=== PATIENT | female | born 1970 | race Caucasian/White ===

== ENCOUNTER 2018-02-04 10:46 | Outpatient (REF) | payer BC, SELFPAY ==
[2018-02-04 11:10] LABS: Absolute Basophil Count 0.02 k/cumm (0.0-0.2); Absolute Lymphocyte Count 1.71 k/cumm (1.2-3.4); Absolute Monocyte Count 0.25 k/cumm (0.11-0.7); Absolute Neutrophil Count 2.96 k/cumm (1.2-6.7); Basophils % 0.4; HCT 41.9 % (36.0-46.0); HGB 13.5 g/dL (12.0-15.5); Lymphocytes % 33.9; Mean Corp. HGB Concentration 32.2 g/dL (32.0-36.0); Mean Corpuscular Hemoglobin 30.6 pg (27.0-33.0); Mean Platelet Volume 11.4 fL (8.0-11.0); Neutrophils % 58.7; Platelet Count 309 x1000/uL (130-400); RBC 4.41 m/cumm (4.00-5.20); RBC Distribution Width 12.5 % (11.7-14.6); White Blood Cell Count 5.04 k/cumm (4.4-10.8)
[2018-02-04 11:24] LABS: ALT 28 U/L (12-78); AST 14 U/L (15-37); Alkaline Phosphatase 55 U/L (46-116); Anion Gap 10.6 mmol/L (3-11); BUN 10 mg/dL (7-18); Bilirubin, Total 0.5 mg/dL (0.2-1.0); CO2 27.4 mmol/L (21.0-32.0); CREATININE 0.92 mg/dL (0.55-1.02); Calcium 9.5 mg/dL (8.5-10.1); Chloride 104 mmol/L (98-107); Glucose 145 mg/dL (70-100); Potassium 3.6 mmol/L (3.5-5.1); Sodium 142 mmol/L (136-145); Total Protein 7.8 g/dL (6.4-8.2)
== END 2018-02-04 11:06 ==
LOC: LBN 10:46
PROVIDERS: PCP Nurse Practitioner Family; Visit Provider Nurse Practitioner
DX: C71.9 Malignant neoplasm of brain, unspecified (principal)
CPT/HCPCS: 80053; 85025

== ENCOUNTER 2018-02-25 14:57 | Outpatient (CLI) | payer BC, SELFPAY ==
[2018-02-25 15:36] LABS: Abs Immature Grans 0.01 k/cumm (0.0-0.09); Absolute Basophil Count 0.01 k/cumm (0.0-0.2); Absolute Eosinophil Count 0.27 k/cumm (0.0-0.7); Absolute Lymphocyte Count 1.37 k/cumm (1.2-3.4); Absolute Monocyte Count 0.44 k/cumm (0.11-0.7); Absolute Neutrophil Count 4.21 k/cumm (1.2-6.7); Basophils % 0.2; Eosinophils % 4.3; HGB 12.1 g/dL (12.0-15.5); Immature Grans % 0.2; Lymphocytes % 21.7; Mean Corp. HGB Concentration 31.8 g/dL (32.0-36.0); Mean Corpuscular Hemoglobin 30.5 pg (27.0-33.0); Mean Corpuscular Volume 95.7 fL (80-95); Mean Platelet Volume 9.5 fL (8.0-11.0); Neutrophils % 66.6; Platelet Count 307 x1000/uL (130-400); RBC 3.97 m/cumm (4.00-5.20); RBC Distribution Width 13.4 % (11.7-14.6); White Blood Cell Count 6.31 k/cumm (4.4-10.8)
[2018-02-25 15:59] LABS: ALT 96 U/L (12-78); AST 48 U/L (15-37); Albumin 3.8 g/dL (3.4-5.0); Alkaline Phosphatase 68 U/L (46-116); Anion Gap 9.5 mmol/L (3-11); BUN 7 mg/dL (7-18); Bilirubin, Total 0.3 mg/dL (0.2-1.0); CO2 27.5 mmol/L (21.0-32.0); CREATININE 0.94 mg/dL (0.55-1.02); Calcium 9.4 mg/dL (8.5-10.1); Chloride 103 mmol/L (98-107); Glucose 91 mg/dL (70-100); Potassium 3.7 mmol/L (3.5-5.1); Sodium 140 mmol/L (136-145); Total Protein 7.4 g/dL (6.4-8.2)
== END 2018-02-25 15:17 ==
PROVIDERS: PCP Nurse Practitioner Family; Visit Provider Nurse Practitioner Family
DX: C71.9 Malignant neoplasm of brain, unspecified (principal)
CPT/HCPCS: 36415; 80053; 85025

== ENCOUNTER 2018-03-03 14:02 | Outpatient (CLI) | payer BC, SELFPAY ==
[2018-03-03 14:30] LABS: ALT 53 U/L (12-78); AST 24 U/L (15-37); Albumin 3.7 g/dL (3.4-5.0); Alkaline Phosphatase 62 U/L (46-116); BUN 10 mg/dL (7-18); Bilirubin, Total 0.4 mg/dL (0.2-1.0); Calcium 9.4 mg/dL (8.5-10.1); Chloride 103 mmol/L (98-107); Estimated GFR 59.18 (mL/min/1.73m2); Glucose 94 mg/dL (70-100); Potassium 3.8 mmol/L (3.5-5.1); Sodium 139 mmol/L (136-145); Total Protein 7.3 g/dL (6.4-8.2)
== END 2018-03-03 14:22 ==
PROVIDERS: PCP Nurse Practitioner Family; Visit Provider Nurse Practitioner Family
DX: C71.9 Malignant neoplasm of brain, unspecified (principal)
CPT/HCPCS: 36415; 80053

== ENCOUNTER 2018-03-09 15:40 | Outpatient (CLI) | payer BC, SELFPAY ==
[2018-03-09 16:25] LABS: Abs Immature Grans 0.02 k/cumm (0.0-0.09); Absolute Basophil Count 0.02 k/cumm (0.0-0.2); Absolute Eosinophil Count 0.36 k/cumm (0.0-0.7); Absolute Monocyte Count 0.54 k/cumm (0.11-0.7); Absolute Neutrophil Count 3.48 k/cumm (1.2-6.7); Basophils % 0.4; Eosinophils % 6.5; HCT 38.7 % (36.0-46.0); HGB 12.4 g/dL (12.0-15.5); Immature Grans % 0.4; Lymphocytes % 19.9; Mean Corpuscular Hemoglobin 30.7 pg (27.0-33.0); Mean Corpuscular Volume 95.8 fL (80-95); Mean Platelet Volume 9.7 fL (8.0-11.0); Monocytes % 9.8; Platelet Count 165 x1000/uL (130-400); RBC 4.04 m/cumm (4.00-5.20); RBC Distribution Width 13.7 % (11.7-14.6); White Blood Cell Count 5.52 k/cumm (4.4-10.8)
[2018-03-09 16:59] LABS: ALT 39 U/L (12-78); AST 25 U/L (15-37); Albumin 3.9 g/dL (3.4-5.0); Alkaline Phosphatase 61 U/L (46-116); Anion Gap 8.8 mmol/L (3-11); BUN 11 mg/dL (7-18); Bilirubin, Total 0.4 mg/dL (0.2-1.0); CO2 28.2 mmol/L (21.0-32.0); CREATININE 1.05 mg/dL (0.55-1.02); Calcium 9.6 mg/dL (8.5-10.1); Chloride 103 mmol/L (98-107); Estimated GFR 55.94 (mL/min/1.73m2); Glucose 100 mg/dL (70-100); Potassium 4.1 mmol/L (3.5-5.1); Sodium 140 mmol/L (136-145)
== END 2018-03-09 16:00 ==
PROVIDERS: PCP Nurse Practitioner Family; Visit Provider Nurse Practitioner Family
DX: C71.9 Malignant neoplasm of brain, unspecified (principal)
CPT/HCPCS: 36415; 80053; 85025

== ENCOUNTER 2018-03-21 14:38 | Outpatient (CLI) | payer BC, SELFPAY ==
[2018-03-21 15:07] LABS: Absolute Basophil Count 0.02 k/cumm (0.0-0.2); Absolute Eosinophil Count 0.29 k/cumm (0.0-0.7); Absolute Monocyte Count 0.46 k/cumm (0.11-0.7); Absolute Neutrophil Count 3.32 k/cumm (1.2-6.7); Basophils % 0.4; Eosinophils % 5.8; HCT 36.2 % (36.0-46.0); HGB 11.7 g/dL (12.0-15.5); Mean Corp. HGB Concentration 32.3 g/dL (32.0-36.0); Mean Corpuscular Hemoglobin 31.5 pg (27.0-33.0); Mean Corpuscular Volume 97.6 fL (80-95); Mean Platelet Volume 9.3 fL (8.0-11.0); Monocytes % 9.2; Neutrophils % 66.6; Platelet Count 153 x1000/uL (130-400); RBC 3.71 m/cumm (4.00-5.20); RBC Distribution Width 14.6 % (11.7-14.6); White Blood Cell Count 4.99 k/cumm (4.4-10.8)
[2018-03-21 16:12] LABS: ALT 96 U/L (12-78); AST 55 U/L (15-37); Albumin 3.6 g/dL (3.4-5.0); Alkaline Phosphatase 60 U/L (46-116); Anion Gap 7.3 mmol/L (3-11); BUN 8 mg/dL (7-18); Bilirubin, Total 0.2 mg/dL (0.2-1.0); CO2 30.7 mmol/L (21.0-32.0); CREATININE 0.99 mg/dL (0.55-1.02); Calcium 9.2 mg/dL (8.5-10.1); Chloride 105 mmol/L (98-107); Estimated GFR 59.87 (mL/min/1.73m2); Glucose 91 mg/dL (70-100); Potassium 3.9 mmol/L (3.5-5.1); Sodium 143 mmol/L (136-145); Total Protein 6.8 g/dL (6.4-8.2)
== END 2018-03-21 14:58 ==
PROVIDERS: PCP Nurse Practitioner Family; Visit Provider Nurse Practitioner Family
DX: C71.9 Malignant neoplasm of brain, unspecified (principal)
CPT/HCPCS: 36415; 80053; 85025

== ENCOUNTER 2018-04-02 10:55 | Outpatient (CLI) | payer BC, SELFPAY ==
[2018-04-02 11:30] LABS: Abs Immature Grans 0.01 k/cumm (0.0-0.09); Absolute Basophil Count 0.03 k/cumm (0.0-0.2); Absolute Eosinophil Count 0.55 k/cumm (0.0-0.7); Absolute Lymphocyte Count 0.76 k/cumm (1.2-3.4); Absolute Monocyte Count 0.33 k/cumm (0.11-0.7); Absolute Neutrophil Count 2.17 k/cumm (1.2-6.7); Basophils % 0.8; Eosinophils % 14.3; HCT 33.7 % (36.0-46.0); HGB 10.6 g/dL (12.0-15.5); Immature Grans % 0.3; Lymphocytes % 19.7; Mean Corp. HGB Concentration 31.5 g/dL (32.0-36.0); Mean Corpuscular Hemoglobin 31.5 pg (27.0-33.0); Mean Corpuscular Volume 100.3 fL (80-95); Mean Platelet Volume 8.8 fL (8.0-11.0); Monocytes % 8.6; Neutrophils % 56.3; Platelet Count 272 x1000/uL (130-400); RBC 3.36 m/cumm (4.00-5.20); RBC Distribution Width 15.6 % (11.7-14.6); White Blood Cell Count 3.85 k/cumm (4.4-10.8)
== END 2018-04-02 11:15 ==
PROVIDERS: PCP Nurse Practitioner Family; Visit Provider Psychiatry & Neurology Neurology
DX: C71.9 Malignant neoplasm of brain, unspecified (principal)
CPT/HCPCS: 36415; 85025

== ENCOUNTER 2018-04-25 03:01 | Outpatient (CLI) | payer BC, SELFPAY ==
[2018-04-25 10:01] LABS: Abs Immature Grans 0.05 k/cumm (0.0-0.09); Absolute Eosinophil Count 0.02 k/cumm (0.0-0.7); Absolute Lymphocyte Count 0.63 k/cumm (1.2-3.4); Absolute Monocyte Count 0.53 k/cumm (0.11-0.7); Absolute Neutrophil Count 7.15 k/cumm (1.2-6.7); Eosinophils % 0.2; HCT 35.6 % (36.0-46.0); HGB 11.7 g/dL (12.0-15.5); Immature Grans % 0.6; Lymphocytes % 7.5; Mean Corp. HGB Concentration 32.9 g/dL (32.0-36.0); Mean Corpuscular Hemoglobin 31.8 pg (27.0-33.0); Mean Corpuscular Volume 96.7 fL (80-95); Mean Platelet Volume 10.1 fL (8.0-11.0); Monocytes % 6.3; Neutrophils % 85.4; Platelet Count 297 x1000/uL (130-400); RBC 3.68 m/cumm (4.00-5.20); RBC Distribution Width 13.7 % (11.7-14.6); White Blood Cell Count 8.38 k/cumm (4.4-10.8)
[2018-04-25 10:12] LABS: ALT 22 U/L (12-78); AST 14 U/L (15-37); Alkaline Phosphatase 54 U/L (46-116); Anion Gap 12.2 mmol/L (3-11); BUN 24 mg/dL (7-18); Bilirubin, Total 0.3 mg/dL (0.2-1.0); CO2 25.8 mmol/L (21.0-32.0); CREATININE 1.66 mg/dL (0.55-1.02); Calcium 9.6 mg/dL (8.5-10.1); Chloride 102 mmol/L (98-107); Estimated GFR 32.97 (mL/min/1.73m2); Glucose 120 mg/dL (70-100); Potassium 3.2 mmol/L (3.5-5.1); Sodium 140 mmol/L (136-145); Total Protein 7.7 g/dL (6.4-8.2)
== END 2018-04-25 03:21 ==
PROVIDERS: PCP Family Medicine; Visit Provider Psychiatry & Neurology Neurology
DX: C71.9 Malignant neoplasm of brain, unspecified (principal)
CPT/HCPCS: 36415; 80053; 85025

== ENCOUNTER 2018-05-03 13:15 | Outpatient (CLI) | payer BC, SELFPAY ==
[2018-05-03 13:35] LABS: Abs Immature Grans 0.01 k/cumm (0.0-0.09); Absolute Basophil Count 0.01 k/cumm (0.0-0.2); Absolute Eosinophil Count 0.03 k/cumm (0.0-0.7); Absolute Monocyte Count 0.27 k/cumm (0.11-0.7); Absolute Neutrophil Count 6.24 k/cumm (1.2-6.7); Basophils % 0.1; Eosinophils % 0.4; HCT 34.4 % (36.0-46.0); HGB 11.4 g/dL (12.0-15.5); Immature Grans % 0.1; Lymphocytes % 5.7; Mean Corp. HGB Concentration 33.1 g/dL (32.0-36.0); Mean Corpuscular Hemoglobin 32.4 pg (27.0-33.0); Mean Corpuscular Volume 97.7 fL (80-95); Mean Platelet Volume 9.5 fL (8.0-11.0); Monocytes % 3.9; Neutrophils % 89.8; Platelet Count 199 x1000/uL (130-400); RBC 3.52 m/cumm (4.00-5.20); RBC Distribution Width 13.8 % (11.7-14.6); White Blood Cell Count 6.96 k/cumm (4.4-10.8)
== END 2018-05-03 13:35 ==
PROVIDERS: PCP Family Medicine; Visit Provider Psychiatry & Neurology Neurology
DX: C71.9 Malignant neoplasm of brain, unspecified (principal)
CPT/HCPCS: 36415; 85025

== ENCOUNTER 2018-05-10 15:48 | Outpatient (CLI) | payer BC, SELFPAY ==
[2018-05-10 16:44] LABS: Abs Immature Grans 0.01 k/cumm (0.0-0.09); Absolute Eosinophil Count 0.04 k/cumm (0.0-0.7); Absolute Monocyte Count 0.35 k/cumm (0.11-0.7); Absolute Neutrophil Count 4.43 k/cumm (1.2-6.7); Eosinophils % 0.8; HGB 10.6 g/dL (12.0-15.5); Immature Grans % 0.2; Lymphocytes % 9.4; Mean Corp. HGB Concentration 32.1 g/dL (32.0-36.0); Mean Corpuscular Hemoglobin 32.5 pg (27.0-33.0); Mean Corpuscular Volume 101.2 fL (80-95); Mean Platelet Volume 8.9 fL (8.0-11.0); Monocytes % 6.6; Platelet Count 119 x1000/uL (130-400); RBC 3.26 m/cumm (4.00-5.20); RBC Distribution Width 14.9 % (11.7-14.6); White Blood Cell Count 5.33 k/cumm (4.4-10.8)
[2018-05-10 17:05] LABS: ALT 34 U/L (12-78); AST 13 U/L (15-37); Albumin 3.8 g/dL (3.4-5.0); Alkaline Phosphatase 48 U/L (46-116); Anion Gap 11.5 mmol/L (3-11); BUN 16 mg/dL (7-18); Bilirubin, Total 0.3 mg/dL (0.2-1.0); CO2 28.5 mmol/L (21.0-32.0); Chloride 103 mmol/L (98-107); Estimated GFR 47.95 (mL/min/1.73m2); Glucose 136 mg/dL (70-100); Potassium 3.4 mmol/L (3.5-5.1); Sodium 143 mmol/L (136-145); Total Protein 6.4 g/dL (6.4-8.2)
[2018-05-10 17:10] LABS: Calcium 8.9 mg/dL (8.5-10.1)
== END 2018-05-10 16:08 ==
PROVIDERS: PCP Family Medicine; Visit Provider Psychiatry & Neurology Neurology
DX: C71.9 Malignant neoplasm of brain, unspecified (principal)
CPT/HCPCS: 36415; 80053; 85025

== ENCOUNTER 2018-05-17 10:17 | Outpatient (CLI) | payer BC, SELFPAY ==
[2018-05-17 10:51] LABS: Absolute Eosinophil Count 0.04 k/cumm (0.0-0.7); Absolute Lymphocyte Count 0.68 k/cumm (1.2-3.4); Absolute Neutrophil Count 3.74 k/cumm (1.2-6.7); Eosinophils % 0.9; HCT 32.5 % (36.0-46.0); HGB 10.5 g/dL (12.0-15.5); Lymphocytes % 14.6; Mean Corp. HGB Concentration 32.3 g/dL (32.0-36.0); Mean Corpuscular Hemoglobin 33.1 pg (27.0-33.0); Mean Corpuscular Volume 102.5 fL (80-95); Mean Platelet Volume 9.5 fL (8.0-11.0); Monocytes % 4.3; Neutrophils % 80.2; RBC 3.17 m/cumm (4.00-5.20); RBC Distribution Width 14.9 % (11.7-14.6); White Blood Cell Count 4.66 k/cumm (4.4-10.8)
[2018-05-17 11:18] LABS: Platelet Count 20 x1000/uL (130-400)
[2018-05-17 11:19] LABS: Diff Comment RBC Morph Reviewed; Macrocytosis 1+; Polychromasia Present
== END 2018-05-17 10:37 ==
PROVIDERS: PCP Family Medicine; Visit Provider Psychiatry & Neurology Neurology
DX: C71.9 Malignant neoplasm of brain, unspecified (principal)
CPT/HCPCS: 36415; 85025

== ENCOUNTER 2018-05-23 11:50 | Outpatient (CLI) | payer BC, SELFPAY ==
[2018-05-23 13:11] LABS: Absolute Lymphocyte Count 0.57 k/cumm (1.2-3.4); Absolute Monocyte Count 0.15 k/cumm (0.11-0.7); HCT 32.4 % (36.0-46.0); HGB 10.7 g/dL (12.0-15.5); Lymphocytes % 16.7; Mean Corpuscular Hemoglobin 33.6 pg (27.0-33.0); Mean Corpuscular Volume 101.9 fL (80-95); Mean Platelet Volume 8.9 fL (8.0-11.0); Monocytes % 4.4; Neutrophils % 78.9; RBC 3.18 m/cumm (4.00-5.20); RBC Distribution Width 14.9 % (11.7-14.6); White Blood Cell Count 3.42 k/cumm (4.4-10.8)
[2018-05-23 13:45] LABS: Platelet Count 45 x1000/uL (130-400)
[2018-05-23 13:46] LABS: Diff Comment PLT Morph Reviewed
[2018-05-23 13:47] LABS: RBC Morphology Normal
== END 2018-05-23 12:10 ==
PROVIDERS: PCP Family Medicine; Visit Provider Psychiatry & Neurology Neurology
DX: C71.9 Malignant neoplasm of brain, unspecified (principal)
CPT/HCPCS: 36415; 85025

== ENCOUNTER 2018-05-30 08:53 | Outpatient (CLI) | payer BC, SELFPAY ==
[2018-05-30 13:05] LABS: Abs Immature Grans 0.02 k/cumm (0.0-0.09); Absolute Monocyte Count 0.17 k/cumm (0.11-0.7); Absolute Neutrophil Count 2.41 k/cumm (1.2-6.7); HCT 33.3 % (36.0-46.0); HGB 11.1 g/dL (12.0-15.5); Immature Grans % 0.6; Lymphocytes % 18.8; Mean Corp. HGB Concentration 33.3 g/dL (32.0-36.0); Mean Corpuscular Hemoglobin 34.3 pg (27.0-33.0); Mean Corpuscular Volume 102.8 fL (80-95); Mean Platelet Volume 9.1 fL (8.0-11.0); Monocytes % 5.3; Neutrophils % 75.3; RBC 3.24 m/cumm (4.00-5.20)
[2018-05-30 13:46] LABS: Diff Comment RBC Morph Reviewed; Platelet Count 15 x1000/uL (130-400)
[2018-05-30 13:47] LABS: Anisocytosis 2+; Macrocytosis 1+; Polychromasia Present
== END 2018-05-30 09:13 ==
PROVIDERS: PCP Family Medicine; Visit Provider Psychiatry & Neurology Neurology
DX: C71.9 Malignant neoplasm of brain, unspecified (principal)
CPT/HCPCS: 36415; 85025

== ENCOUNTER 2018-06-01 00:48 | Outpatient (CLI) | payer BC, SELFPAY ==
[2018-06-01 08:52] LABS: Abs Immature Grans 0.02 k/cumm (0.0-0.09); Absolute Lymphocyte Count 0.77 k/cumm (1.2-3.4); Absolute Monocyte Count 0.24 k/cumm (0.11-0.7); HCT 33.8 % (36.0-46.0); HGB 11.1 g/dL (12.0-15.5); Immature Grans % 0.8; Lymphocytes % 29.3; Mean Corp. HGB Concentration 32.8 g/dL (32.0-36.0); Mean Corpuscular Volume 103.7 fL (80-95); Monocytes % 9.1; Neutrophils % 60.8; RBC 3.26 m/cumm (4.00-5.20); RBC Distribution Width 16.5 % (11.7-14.6); White Blood Cell Count 2.63 k/cumm (4.4-10.8)
[2018-06-01 09:29] LABS: Platelet Count 21 x1000/uL (130-400)
[2018-06-01 09:58] LABS: Diff Comment PLT Morph Reviewed
[2018-06-01 10:14] LABS: Anisocytosis 1+; Macrocytosis 1+; Polychromasia Present
== END 2018-06-01 01:08 ==
PROVIDERS: PCP Family Medicine; Visit Provider Psychiatry & Neurology Neurology
DX: C71.9 Malignant neoplasm of brain, unspecified (principal)
CPT/HCPCS: 36415; 85025

== ENCOUNTER 2018-06-03 01:19 | Outpatient (CLI) | payer BC, SELFPAY ==
[2018-06-03 07:50] LABS: Abs Immature Grans 0.06 k/cumm (0.0-0.09); HCT 34.1 % (36.0-46.0); HGB 11.1 g/dL (12.0-15.5); Mean Corp. HGB Concentration 32.6 g/dL (32.0-36.0); Mean Corpuscular Hemoglobin 33.9 pg (27.0-33.0); Mean Corpuscular Volume 104.3 fL (80-95); RBC 3.27 m/cumm (4.00-5.20); RBC Distribution Width 16.9 % (11.7-14.6); White Blood Cell Count 2.82 k/cumm (4.4-10.8)
[2018-06-03 08:46] LABS: Absolute Lymphocyte Count 0.93 k/cumm (1.2-3.4); Absolute Neutrophil Count 1.61 k/cumm (1.2-6.7); Platelet Count 28 x1000/uL (130-400)
[2018-06-03 08:47] LABS: Anisocytosis 1+; Diff Comment Manual Differential; Polychromasia Present
== END 2018-06-03 01:39 ==
PROVIDERS: PCP Family Medicine; Visit Provider Psychiatry & Neurology Neurology
DX: C71.9 Malignant neoplasm of brain, unspecified (principal)
CPT/HCPCS: 36415; 85025

== ENCOUNTER 2018-06-08 01:54 | Outpatient (CLI) | payer BC, SELFPAY ==
[2018-06-08 09:50] LABS: HCT 34.9 % (36.0-46.0); HGB 11.5 g/dL (12.0-15.5); Mean Corpuscular Hemoglobin 34.4 pg (27.0-33.0); Mean Corpuscular Volume 104.5 fL (80-95); Mean Platelet Volume 9.8 fL (8.0-11.0); RBC 3.34 m/cumm (4.00-5.20); RBC Distribution Width 17.6 % (11.7-14.6); White Blood Cell Count 3.75 k/cumm (4.4-10.8)
[2018-06-08 10:02] LABS: Platelet Count 37 x1000/uL (130-400)
== END 2018-06-08 02:14 ==
PROVIDERS: PCP Family Medicine; Visit Provider Psychiatry & Neurology Neurology
DX: C71.9 Malignant neoplasm of brain, unspecified (principal)
CPT/HCPCS: 36415; 85027

== ENCOUNTER 2018-06-24 03:42 | Outpatient (CLI) | payer BC, SELFPAY ==
[2018-06-24 12:35] LABS: Abs Immature Grans 0.06 k/cumm (0.0-0.09); Absolute Basophil Count 0.01 k/cumm (0.0-0.2); Absolute Lymphocyte Count 0.54 k/cumm (1.2-3.4); Absolute Monocyte Count 0.28 k/cumm (0.11-0.7); Absolute Neutrophil Count 4.61 k/cumm (1.2-6.7); Basophils % 0.2; HCT 33.3 % (36.0-46.0); HGB 10.8 g/dL (12.0-15.5); Immature Grans % 1.1; Lymphocytes % 9.8; Mean Corp. HGB Concentration 32.4 g/dL (32.0-36.0); Mean Corpuscular Hemoglobin 35.1 pg (27.0-33.0); Mean Corpuscular Volume 108.1 fL (80-95); Mean Platelet Volume 9.2 fL (8.0-11.0); Monocytes % 5.1; Neutrophils % 83.8; RBC 3.08 m/cumm (4.00-5.20); RBC Distribution Width 18.6 % (11.7-14.6)
[2018-06-24 13:11] LABS: Platelet Count 32 x1000/uL (130-400)
[2018-06-24 13:12] LABS: Macrocytosis 2+
== END 2018-06-24 04:02 ==
PROVIDERS: PCP Family Medicine; Visit Provider Psychiatry & Neurology Neurology
DX: C71.9 Malignant neoplasm of brain, unspecified (principal)
CPT/HCPCS: 36415; 85025

== ENCOUNTER 2018-07-01 02:17 | Outpatient (CLI) | payer BC, SELFPAY ==
[2018-07-01 09:56] LABS: Abs Immature Grans 0.03 k/cumm (0.0-0.09); Absolute Basophil Count 0.01 k/cumm (0.0-0.2); Absolute Eosinophil Count 0.05 k/cumm (0.0-0.7); Absolute Lymphocyte Count 0.68 k/cumm (1.2-3.4); Absolute Monocyte Count 0.25 k/cumm (0.11-0.7); Absolute Neutrophil Count 3.63 k/cumm (1.2-6.7); Basophils % 0.2; Eosinophils % 1.1; HGB 10.7 g/dL (12.0-15.5); Immature Grans % 0.6; Lymphocytes % 14.6; Mean Corp. HGB Concentration 32.4 g/dL (32.0-36.0); Mean Corpuscular Hemoglobin 35.7 pg (27.0-33.0); Mean Platelet Volume 9.8 fL (8.0-11.0); Monocytes % 5.4; Neutrophils % 78.1; RBC Distribution Width 18.8 % (11.7-14.6); White Blood Cell Count 4.65 k/cumm (4.4-10.8)
[2018-07-01 10:15] LABS: Platelet Count 27 x1000/uL (130-400)
[2018-07-01 10:16] LABS: Anisocytosis 2+; Diff Comment RBC Morph Reviewed; Macrocytosis 2+; Microcytosis 1+; Polychromasia Present
== END 2018-07-01 02:37 ==
PROVIDERS: PCP Family Medicine; Visit Provider Psychiatry & Neurology Neurology
DX: C71.9 Malignant neoplasm of brain, unspecified (principal)
CPT/HCPCS: 36415; 85025

== ENCOUNTER 2018-07-08 09:46 | Outpatient (CLI) | payer BC, SELFPAY ==
[2018-07-08 13:46] LABS: Abs Immature Grans 0.04 k/cumm (0.0-0.09); Absolute Basophil Count 0.01 k/cumm (0.0-0.2); Absolute Lymphocyte Count 0.59 k/cumm (1.2-3.4); Absolute Monocyte Count 0.28 k/cumm (0.11-0.7); Absolute Neutrophil Count 4.25 k/cumm (1.2-6.7); Basophils % 0.2; Eosinophils % 1.9; HCT 32.7 % (36.0-46.0); HGB 10.7 g/dL (12.0-15.5); Immature Grans % 0.8; Lymphocytes % 11.2; Mean Corp. HGB Concentration 32.7 g/dL (32.0-36.0); Mean Corpuscular Hemoglobin 36.4 pg (27.0-33.0); Mean Corpuscular Volume 111.2 fL (80-95); Mean Platelet Volume 9.8 fL (8.0-11.0); Monocytes % 5.3; Neutrophils % 80.6; RBC 2.94 m/cumm (4.00-5.20); RBC Distribution Width 18.5 % (11.7-14.6); White Blood Cell Count 5.27 k/cumm (4.4-10.8)
[2018-07-08 14:18] LABS: Platelet Count 24 x1000/uL (130-400)
[2018-07-08 14:19] LABS: Anisocytosis 1+; Diff Comment RBC Morph Reviewed; Macrocytosis 2+; Polychromasia Present
== END 2018-07-08 10:06 ==
PROVIDERS: PCP Family Medicine; Visit Provider Psychiatry & Neurology Neurology
DX: C71.9 Malignant neoplasm of brain, unspecified (principal)
CPT/HCPCS: 36415; 85025

== ENCOUNTER 2018-07-20 14:35 | Outpatient (CLI) | payer BC, SELFPAY ==
[2018-07-20 15:49] LABS: Abs Immature Grans 0.01 k/cumm (0.0-0.09); Absolute Basophil Count 0.01 k/cumm (0.0-0.2); Absolute Eosinophil Count 0.14 k/cumm (0.0-0.7); Absolute Lymphocyte Count 0.43 k/cumm (1.2-3.4); Absolute Monocyte Count 0.15 k/cumm (0.11-0.7); Basophils % 0.3; Eosinophils % 3.5; HCT 33.1 % (36.0-46.0); HGB 10.7 g/dL (12.0-15.5); Immature Grans % 0.3; Lymphocytes % 10.8; Mean Corp. HGB Concentration 32.3 g/dL (32.0-36.0); Mean Corpuscular Hemoglobin 36.1 pg (27.0-33.0); Mean Corpuscular Volume 111.8 fL (80-95); Mean Platelet Volume 9.1 fL (8.0-11.0); Monocytes % 3.8; Neutrophils % 81.3; RBC 2.96 m/cumm (4.00-5.20); RBC Distribution Width 16.7 % (11.7-14.6); White Blood Cell Count 3.99 k/cumm (4.4-10.8)
[2018-07-20 15:55] LABS: Absolute Neutrophil Count 3.24 k/cumm (1.2-6.7)
[2018-07-20 16:12] LABS: Platelet Count 36 x1000/uL (130-400)
[2018-07-20 16:17] LABS: Diff Comment RBC Morph Reviewed
[2018-07-20 16:18] LABS: Anisocytosis 2+; Hypochromasia 1+; Macrocytosis 2+; Polychromasia Present
[2018-07-20 16:19] LABS: Poikilocytes 1+
[2018-07-20 16:45] LABS: ALT 25 U/L (12-78); AST 12 U/L (15-37); Albumin 3.4 g/dL (3.4-5.0); Alkaline Phosphatase 45 U/L (46-116); Anion Gap 9.5 mmol/L (3-11); BUN 6 mg/dL (7-18); Bilirubin, Total 0.3 mg/dL (0.2-1.0); CO2 26.5 mmol/L (21.0-32.0); CREATININE 1.07 mg/dL (0.55-1.02); Calcium 8.5 mg/dL (8.5-10.1); Chloride 103 mmol/L (98-107); Estimated GFR 54.73 (mL/min/1.73m2); Glucose 120 mg/dL (70-100); Sodium 139 mmol/L (136-145); Total Protein 6.1 g/dL (6.4-8.2)
[2018-07-20 16:56] LABS: Potassium 2.9 mmol/L (3.5-5.1)
== END 2018-07-20 14:55 ==
PROVIDERS: PCP Family Medicine; Visit Provider Psychiatry & Neurology Neurology
DX: C71.9 Malignant neoplasm of brain, unspecified (principal)
CPT/HCPCS: 36415; 80053; 85025

== ENCOUNTER 2018-08-05 10:38 | Outpatient (CLI) | payer BC, SELFPAY ==
[2018-08-05 11:18] LABS: Abs Immature Grans 0.07 k/cumm (0.0-0.09); Absolute Basophil Count 0.01 k/cumm (0.0-0.2); Absolute Eosinophil Count 0.04 k/cumm (0.0-0.7); Absolute Lymphocyte Count 0.49 k/cumm (1.2-3.4); Absolute Monocyte Count 0.34 k/cumm (0.11-0.7); Absolute Neutrophil Count 8.08 k/cumm (1.2-6.7); Basophils % 0.1; Eosinophils % 0.4; HCT 29.5 % (36.0-46.0); HGB 9.7 g/dL (12.0-15.5); Immature Grans % 0.8; Lymphocytes % 5.4; Mean Corp. HGB Concentration 32.9 g/dL (32.0-36.0); Mean Corpuscular Hemoglobin 35.8 pg (27.0-33.0); Mean Corpuscular Volume 108.9 fL (80-95); Mean Platelet Volume 11.2 fL (8.0-11.0); Monocytes % 3.8; Neutrophils % 89.5; RBC 2.71 m/cumm (4.00-5.20); RBC Distribution Width 15.5 % (11.7-14.6); White Blood Cell Count 9.03 k/cumm (4.4-10.8)
[2018-08-05 11:46] LABS: Platelet Count 34 x1000/uL (130-400)
[2018-08-05 11:47] LABS: Anisocytosis 1+; Diff Comment PLT Morph Reviewed; Macrocytosis 2+; Polychromasia Present
== END 2018-08-05 10:58 ==
PROVIDERS: PCP Family Medicine; Visit Provider Psychiatry & Neurology Neurology
DX: C71.9 Malignant neoplasm of brain, unspecified (principal)
CPT/HCPCS: 36415; 85025

== ENCOUNTER 2018-08-12 09:34 | Outpatient (CLI) | payer BC, SELFPAY ==
[2018-08-12 10:55] LABS: Bilirubin Negative (Negative); Blood Negative (Negative); Clarity Clear (Clear); Glucose Negative (Negative); Ketones Negative (Negative); Leukocyte Esterase Negative (Negative); Nitrite Negative (Negative); Specific Gravity 1.015 (1.005-1.025); Urobilinogen 0.2 EU/dL (Up TO 0.2); pH 5.5 (5-8)
[2018-08-12 11:10] LABS: RBC Negative (0-2); WBC Negative HPF (0-5)
[2018-08-12 11:11] LABS: Bacteria Negative HPF (Negative); C & S Indicated? No; Casts Negative LPF (Negative); Crystals Negative HPF (Negative); Epithelial Cells Moderate HPF (Negative); Mucus Negative (Negative)
[2018-08-12 11:50] LABS: Abs Immature Grans 0.03 k/cumm (0.0-0.09); Absolute Basophil Count 0.01 k/cumm (0.0-0.2); Absolute Eosinophil Count 0.02 k/cumm (0.0-0.7); Absolute Lymphocyte Count 0.41 k/cumm (1.2-3.4); Absolute Monocyte Count 0.28 k/cumm (0.11-0.7); Absolute Neutrophil Count 7.41 k/cumm (1.2-6.7); Basophils % 0.1; Eosinophils % 0.2; HCT 29.4 % (36.0-46.0); HGB 9.5 g/dL (12.0-15.5); Immature Grans % 0.4; Mean Corp. HGB Concentration 32.3 g/dL (32.0-36.0); Mean Corpuscular Hemoglobin 36.4 pg (27.0-33.0); Mean Corpuscular Volume 112.6 fL (80-95); Mean Platelet Volume 9.4 fL (8.0-11.0); Monocytes % 3.4; Neutrophils % 90.9; RBC 2.61 m/cumm (4.00-5.20); RBC Distribution Width 14.9 % (11.7-14.6); White Blood Cell Count 8.16 k/cumm (4.4-10.8)
[2018-08-12 11:51] LABS: Anisocytosis 1+; Diff Comment RBC Morph Reviewed; Platelet Count 50 x1000/uL (130-400)
[2018-08-12 11:52] LABS: Hypochromasia 1+; Macrocytosis 2+
== END 2018-08-12 09:54 ==
PROVIDERS: PCP Family Medicine; Visit Provider Psychiatry & Neurology Neurology
DX: D69.59 Other secondary thrombocytopenia (principal); T50.905A Adverse effect of unspecified drugs, medicaments and biological substances, initial encounter; C71.9 Malignant neoplasm of brain, unspecified
CPT/HCPCS: 36415; 81003; 81015; 85025

== ENCOUNTER 2018-08-19 13:46 | Outpatient (REF) | payer BC, SELFPAY ==
[2018-08-19 15:08] LABS: Abs Immature Grans 0.01 k/cumm (0.0-0.09); Absolute Basophil Count 0.01 k/cumm (0.0-0.2); Absolute Eosinophil Count 0.06 k/cumm (0.0-0.7); Absolute Lymphocyte Count 0.27 k/cumm (1.2-3.4); Absolute Monocyte Count 0.17 k/cumm (0.11-0.7); Absolute Neutrophil Count 4.51 k/cumm (1.2-6.7); Basophils % 0.2; Eosinophils % 1.2; HCT 25.8 % (36.0-46.0); HGB 8.4 g/dL (12.0-15.5); Immature Grans % 0.2; Lymphocytes % 5.4; Mean Corp. HGB Concentration 32.6 g/dL (32.0-36.0); Mean Corpuscular Volume 113.7 fL (80-95); Mean Platelet Volume 9.9 fL (8.0-11.0); Monocytes % 3.4; Neutrophils % 89.6; RBC 2.27 m/cumm (4.00-5.20); RBC Distribution Width 14.9 % (11.7-14.6); White Blood Cell Count 5.03 k/cumm (4.4-10.8)
[2018-08-19 15:31] LABS: Platelet Count 35 x1000/uL (130-400)
[2018-08-19 15:32] LABS: Diff Comment RBC Morph Reviewed; Hypochromasia 2+; Macrocytosis 2+
== END 2018-08-19 14:06 ==
LOC: LBN 13:46
PROVIDERS: PCP Family Medicine; Visit Provider Psychiatry & Neurology Neurology
DX: D69.59 Other secondary thrombocytopenia (principal)
CPT/HCPCS: 85025

== ENCOUNTER 2018-08-26 13:53 | Outpatient (REF) | payer BC, SELFPAY ==
[2018-08-26 14:16] LABS: Abs Immature Grans 0.03 k/cumm (0.0-0.09); Absolute Basophil Count 0.01 k/cumm (0.0-0.2); Absolute Eosinophil Count 0.01 k/cumm (0.0-0.7); Absolute Lymphocyte Count 0.27 k/cumm (1.2-3.4); Absolute Monocyte Count 0.11 k/cumm (0.11-0.7); Absolute Neutrophil Count 4.53 k/cumm (1.2-6.7); Basophils % 0.2; Eosinophils % 0.2; HGB 9.2 g/dL (12.0-15.5); Immature Grans % 0.6; Lymphocytes % 5.4; Mean Corp. HGB Concentration 32.9 g/dL (32.0-36.0); Mean Corpuscular Hemoglobin 36.9 pg (27.0-33.0); Mean Corpuscular Volume 112.4 fL (80-95); Mean Platelet Volume 10.7 fL (8.0-11.0); Monocytes % 2.2; Neutrophils % 91.4; RBC 2.49 m/cumm (4.00-5.20); RBC Distribution Width 14.5 % (11.7-14.6); White Blood Cell Count 4.96 k/cumm (4.4-10.8)
[2018-08-26 14:36] LABS: Anisocytosis 1+; Diff Comment RBC Morph Reviewed; Macrocytosis 3+; Platelet Count 36 x1000/uL (130-400); Poikilocytes 1+; Polychromasia Present
[2018-08-26 15:35] LABS: ALT 28 U/L (12-78); Albumin 4.1 g/dL (3.4-5.0); Alkaline Phosphatase 58 U/L (46-116); BUN 5 mg/dL (7-18); Bilirubin, Total 0.2 mg/dL (0.2-1.0); CREATININE 0.65 mg/dL (0.55-1.02); Calcium 9.3 mg/dL (8.5-10.1); Glucose 107 mg/dL (70-100); Total Protein 7.1 g/dL (6.4-8.2)
[2018-08-26 15:49] LABS: AST 12 U/L (15-37); Chloride 91 mmol/L (98-107)
[2018-08-26 15:50] LABS: Sodium 127 mmol/L (136-145)
== END 2018-08-26 14:13 ==
LOC: LBN 13:53
PROVIDERS: PCP Psychiatry & Neurology Neurology; Visit Provider Psychiatry & Neurology Neurology
DX: D69.59 Other secondary thrombocytopenia (principal)
CPT/HCPCS: 80053; 85025

== ENCOUNTER 2018-09-02 11:16 | Outpatient (REF) | payer BC, SELFPAY ==
[2018-09-02 11:58] LABS: Abs Immature Grans 0.02 k/cumm (0.0-0.09); Absolute Basophil Count 0.01 k/cumm (0.0-0.2); Absolute Eosinophil Count 0.12 k/cumm (0.0-0.7); Absolute Lymphocyte Count 0.25 k/cumm (1.2-3.4); Absolute Monocyte Count 0.12 k/cumm (0.11-0.7); Absolute Neutrophil Count 5.78 k/cumm (1.2-6.7); Basophils % 0.2; Eosinophils % 1.9; HCT 29.6 % (36.0-46.0); HGB 9.5 g/dL (12.0-15.5); Immature Grans % 0.3; Mean Corp. HGB Concentration 32.1 g/dL (32.0-36.0); Mean Corpuscular Hemoglobin 37.4 pg (27.0-33.0); Mean Corpuscular Volume 116.5 fL (80-95); Mean Platelet Volume 10.3 fL (8.0-11.0); Monocytes % 1.9; Neutrophils % 91.7; RBC 2.54 m/cumm (4.00-5.20)
[2018-09-02 12:23] LABS: Diff Comment Diff Reviewed
[2018-09-02 12:24] LABS: Macrocytosis 2+; Platelet Count 35 x1000/uL (130-400); Polychromasia Present
[2018-09-02 12:44] LABS: ALT 24 U/L (12-78); AST 11 U/L (15-37); Albumin 4.1 g/dL (3.4-5.0); Alkaline Phosphatase 58 U/L (46-116); Anion Gap 12.8 mmol/L (3-11); BUN 7 mg/dL (7-18); Bilirubin, Total 0.3 mg/dL (0.2-1.0); CO2 24.2 mmol/L (21.0-32.0); CREATININE 0.91 mg/dL (0.55-1.02); Chloride 98 mmol/L (98-107); Glucose 117 mg/dL (70-100); Potassium 3.7 mmol/L (3.5-5.1); Sodium 135 mmol/L (136-145); Total Protein 6.9 g/dL (6.4-8.2)
== END 2018-09-02 11:36 ==
LOC: LBN 11:16
PROVIDERS: PCP Psychiatry & Neurology Neurology; Visit Provider Psychiatry & Neurology Neurology
DX: D69.59 Other secondary thrombocytopenia (principal)
CPT/HCPCS: 80053; 85025

== ENCOUNTER 2018-09-09 15:10 | Outpatient (REF) | payer BC, SELFPAY ==
[2018-09-09 16:25] LABS: Abs Immature Grans 0.01 k/cumm (0.0-0.09); Absolute Basophil Count 0.01 k/cumm (0.0-0.2); Absolute Lymphocyte Count 0.32 k/cumm (1.2-3.4); Absolute Monocyte Count 0.06 k/cumm (0.11-0.7); Absolute Neutrophil Count 4.73 k/cumm (1.2-6.7); Basophils % 0.2; HCT 30.7 % (36.0-46.0); HGB 9.6 g/dL (12.0-15.5); Immature Grans % 0.2; Lymphocytes % 6.2; Mean Corp. HGB Concentration 31.3 g/dL (32.0-36.0); Mean Corpuscular Hemoglobin 37.6 pg (27.0-33.0); Mean Corpuscular Volume 120.4 fL (80-95); Mean Platelet Volume 9.4 fL (8.0-11.0); Monocytes % 1.2; Neutrophils % 92.2; RBC 2.55 m/cumm (4.00-5.20); RBC Distribution Width 14.7 % (11.7-14.6); White Blood Cell Count 5.13 k/cumm (4.4-10.8)
[2018-09-09 16:46] LABS: Platelet Count 34 x1000/uL (130-400)
[2018-09-09 16:47] LABS: Basophilic Stippling Present; Macrocytosis 1+; Polychromasia Present
== END 2018-09-09 15:30 ==
LOC: LBN 15:10
PROVIDERS: PCP Psychiatry & Neurology Neurology; Visit Provider Psychiatry & Neurology Neurology
DX: C71.9 Malignant neoplasm of brain, unspecified (principal)
CPT/HCPCS: 85025

== ENCOUNTER 2018-09-23 13:11 | Outpatient (REF) | payer BC, SELFPAY ==
[2018-09-23 13:31] LABS: Abs Immature Grans 0.03 k/cumm (0.0-0.09); Absolute Basophil Count 0.01 k/cumm (0.0-0.2); Absolute Lymphocyte Count 0.26 k/cumm (1.2-3.4); Absolute Monocyte Count 0.09 k/cumm (0.11-0.7); Absolute Neutrophil Count 4.32 k/cumm (1.2-6.7); Basophils % 0.2; HCT 32.4 % (36.0-46.0); HGB 10.1 g/dL (12.0-15.5); Immature Grans % 0.6; Lymphocytes % 5.5; Mean Corp. HGB Concentration 31.2 g/dL (32.0-36.0); Mean Corpuscular Hemoglobin 36.7 pg (27.0-33.0); Mean Corpuscular Volume 117.8 fL (80-95); Monocytes % 1.9; Neutrophils % 91.8; RBC 2.75 m/cumm (4.00-5.20); RBC Distribution Width 14.1 % (11.7-14.6); White Blood Cell Count 4.71 k/cumm (4.4-10.8)
[2018-09-23 13:59] LABS: Anisocytosis 2+; Diff Comment RBC Morph Reviewed; Hypochromasia 1+; Platelet Count 38 x1000/uL (130-400)
[2018-09-23 14:00] LABS: Macrocytosis 2+; Polychromasia Present
== END 2018-09-23 13:31 ==
LOC: LBN 13:11
PROVIDERS: PCP Psychiatry & Neurology Neurology; Visit Provider Psychiatry & Neurology Neurology
DX: D69.59 Other secondary thrombocytopenia (principal)
CPT/HCPCS: 85025

== ENCOUNTER 2018-09-30 12:23 | Outpatient (REF) | payer BC, SELFPAY ==
[2018-09-30 13:37] LABS: Abs Immature Grans 0.02 k/cumm (0.0-0.09); Absolute Basophil Count 0.01 k/cumm (0.0-0.2); Absolute Eosinophil Count 0.01 k/cumm (0.0-0.7); Absolute Lymphocyte Count 0.27 k/cumm (1.2-3.4); Absolute Neutrophil Count 4.62 k/cumm (1.2-6.7); Basophils % 0.2; Eosinophils % 0.2; HGB 10.4 g/dL (12.0-15.5); Immature Grans % 0.4; Lymphocytes % 5.4; Mean Corp. HGB Concentration 31.5 g/dL (32.0-36.0); Mean Corpuscular Hemoglobin 37.7 pg (27.0-33.0); Mean Corpuscular Volume 119.6 fL (80-95); Mean Platelet Volume 10.9 fL (8.0-11.0); Neutrophils % 91.8; RBC 2.76 m/cumm (4.00-5.20); RBC Distribution Width 13.9 % (11.7-14.6); White Blood Cell Count 5.03 k/cumm (4.4-10.8)
[2018-09-30 13:38] LABS: Diff Comment Diff Reviewed; Macrocytosis 2+; Platelet Count 42 x1000/uL (130-400); Polychromasia Present
== END 2018-09-30 12:43 ==
LOC: LBN 12:23
PROVIDERS: PCP Psychiatry & Neurology Neurology; Visit Provider Psychiatry & Neurology Neurology
DX: D69.59 Other secondary thrombocytopenia (principal)
CPT/HCPCS: 85025

== ENCOUNTER 2018-10-06 12:40 | Outpatient (REF) | payer BC, SELFPAY ==
[2018-10-06 13:38] LABS: Abs Immature Grans 0.02 k/cumm (0.0-0.09); Absolute Basophil Count 0.02 k/cumm (0.0-0.2); Absolute Eosinophil Count 0.07 k/cumm (0.0-0.7); Absolute Lymphocyte Count 0.48 k/cumm (1.2-3.4); Absolute Monocyte Count 0.34 k/cumm (0.11-0.7); Absolute Neutrophil Count 4.91 k/cumm (1.2-6.7); Basophils % 0.3; Eosinophils % 1.2; HCT 32.8 % (36.0-46.0); HGB 10.4 g/dL (12.0-15.5); Immature Grans % 0.3; Lymphocytes % 8.2; Mean Corp. HGB Concentration 31.7 g/dL (32.0-36.0); Mean Corpuscular Volume 119.7 fL (80-95); Mean Platelet Volume 10.6 fL (8.0-11.0); Monocytes % 5.8; Neutrophils % 84.2; RBC 2.74 m/cumm (4.00-5.20); RBC Distribution Width 13.4 % (11.7-14.6); White Blood Cell Count 5.84 k/cumm (4.4-10.8)
[2018-10-06 14:30] LABS: Platelet Count 39 x1000/uL (130-400)
[2018-10-06 14:31] LABS: Diff Comment PLT Morph Reviewed; Macrocytosis 2+
[2018-10-06 14:32] LABS: Polychromasia Present
== END 2018-10-06 13:00 ==
LOC: LBN 12:40
PROVIDERS: PCP Psychiatry & Neurology Neurology; Visit Provider Psychiatry & Neurology Neurology
DX: D69.59 Other secondary thrombocytopenia (principal)
CPT/HCPCS: 85025

== ENCOUNTER 2018-10-14 11:05 | Outpatient (REF) | payer BC, SELFPAY ==
[2018-10-14 11:44] LABS: Abs Immature Grans 0.02 k/cumm (0.0-0.09); Absolute Basophil Count 0.01 k/cumm (0.0-0.2); Absolute Eosinophil Count 0.02 k/cumm (0.0-0.7); Absolute Lymphocyte Count 0.41 k/cumm (1.2-3.4); Absolute Monocyte Count 0.23 k/cumm (0.11-0.7); Absolute Neutrophil Count 5.09 k/cumm (1.2-6.7); Basophils % 0.2; Eosinophils % 0.3; HCT 32.8 % (36.0-46.0); HGB 10.4 g/dL (12.0-15.5); Immature Grans % 0.3; Lymphocytes % 7.1; Mean Corp. HGB Concentration 31.7 g/dL (32.0-36.0); Mean Corpuscular Hemoglobin 37.4 pg (27.0-33.0); Mean Platelet Volume 10.1 fL (8.0-11.0); Neutrophils % 88.1; RBC 2.78 m/cumm (4.00-5.20); RBC Distribution Width 13.2 % (11.7-14.6); White Blood Cell Count 5.78 k/cumm (4.4-10.8)
[2018-10-14 12:07] LABS: Diff Comment Diff Reviewed; Macrocytosis 3+; Platelet Count 44 x1000/uL (130-400); Polychromasia Present
== END 2018-10-14 11:25 ==
LOC: LBN 11:05
PROVIDERS: PCP Psychiatry & Neurology Neurology; Visit Provider Psychiatry & Neurology Neurology
DX: D69.59 Other secondary thrombocytopenia (principal)
CPT/HCPCS: 85025

== ENCOUNTER 2018-10-21 13:44 | Outpatient (REF) | payer BC, SELFPAY ==
[2018-10-21 14:40] LABS: ALT 25 U/L (14-59); AST 8 U/L (15-37); Albumin 3.8 g/dL (3.4-5.0); Alkaline Phosphatase 46 U/L (46-116); Anion Gap 8.3 mmol/L (3-11); BUN 11 mg/dL (7-18); Bilirubin, Total 0.2 mg/dL (0.2-1.0); CO2 29.7 mmol/L (21.0-32.0); CREATININE 1.01 mg/dL (0.55-1.02); Calcium 9.2 mg/dL (8.5-10.1); Chloride 108 mmol/L (98-107); Glucose 116 mg/dL (70-100); Potassium 3.7 mmol/L (3.5-5.1); Sodium 146 mmol/L (136-145); Total Protein 6.5 g/dL (6.4-8.2)
[2018-10-21 14:52] LABS: Abs Immature Grans 0.01 k/cumm (0.0-0.09); Absolute Basophil Count 0.01 k/cumm (0.0-0.2); Absolute Eosinophil Count 0.02 k/cumm (0.0-0.7); Absolute Lymphocyte Count 0.33 k/cumm (1.2-3.4); Absolute Monocyte Count 0.21 k/cumm (0.11-0.7); Absolute Neutrophil Count 4.04 k/cumm (1.2-6.7); Basophils % 0.2; Eosinophils % 0.4; HCT 33.8 % (36.0-46.0); HGB 10.5 g/dL (12.0-15.5); Immature Grans % 0.2; Lymphocytes % 7.1; Mean Corp. HGB Concentration 31.1 g/dL (32.0-36.0); Mean Corpuscular Hemoglobin 36.6 pg (27.0-33.0); Mean Corpuscular Volume 117.8 fL (80-95); Mean Platelet Volume 9.5 fL (8.0-11.0); Monocytes % 4.5; Neutrophils % 87.6; RBC 2.87 m/cumm (4.00-5.20); RBC Distribution Width 12.6 % (11.7-14.6); White Blood Cell Count 4.62 k/cumm (4.4-10.8)
[2018-10-21 16:02] LABS: Macrocytosis 1+; Platelet Count 39 x1000/uL (130-400)
== END 2018-10-21 14:04 ==
LOC: LBN 13:44
PROVIDERS: PCP Psychiatry & Neurology Neurology; Visit Provider Psychiatry & Neurology Neurology
DX: D69.59 Other secondary thrombocytopenia (principal)
CPT/HCPCS: 80053; 85025

== ENCOUNTER 2018-10-28 11:52 | Outpatient (REF) | payer BC, SELFPAY ==
[2018-10-28 12:19] LABS: Abs Immature Grans 0.01 k/cumm (0.0-0.09); Absolute Basophil Count 0.01 k/cumm (0.0-0.2); Absolute Eosinophil Count 0.02 k/cumm (0.0-0.7); Absolute Monocyte Count 0.24 k/cumm (0.11-0.7); Absolute Neutrophil Count 3.61 k/cumm (1.2-6.7); Basophils % 0.2; Eosinophils % 0.5; HCT 31.6 % (36.0-46.0); HGB 10.2 g/dL (12.0-15.5); Immature Grans % 0.2; Lymphocytes % 11.4; Mean Corp. HGB Concentration 32.3 g/dL (32.0-36.0); Mean Corpuscular Hemoglobin 37.4 pg (27.0-33.0); Mean Corpuscular Volume 115.8 fL (80-95); Mean Platelet Volume 10.1 fL (8.0-11.0); Monocytes % 5.5; Neutrophils % 82.2; RBC 2.73 m/cumm (4.00-5.20); RBC Distribution Width 12.1 % (11.7-14.6); White Blood Cell Count 4.39 k/cumm (4.4-10.8)
[2018-10-28 12:40] LABS: Anisocytosis 3+; Diff Comment RBC Morph Reviewed; Platelet Count 46 x1000/uL (130-400); Polychromasia Present
== END 2018-10-28 12:12 ==
LOC: LBN 11:52
PROVIDERS: PCP Psychiatry & Neurology Neurology; Visit Provider Psychiatry & Neurology Neurology
DX: D69.59 Other secondary thrombocytopenia (principal)
CPT/HCPCS: 85025

== ENCOUNTER 2018-11-18 11:15 | Outpatient (REF) | payer BC, SELFPAY ==
[2018-11-18 12:37] LABS: Abs Immature Grans 0.01 k/cumm (0.0-0.09); Absolute Basophil Count 0.01 k/cumm (0.0-0.2); Absolute Eosinophil Count 0.03 k/cumm (0.0-0.7); Absolute Lymphocyte Count 0.76 k/cumm (1.2-3.4); Absolute Monocyte Count 0.22 k/cumm (0.11-0.7); Absolute Neutrophil Count 1.74 k/cumm (1.2-6.7); Basophils % 0.4; Eosinophils % 1.1; HCT 32.7 % (36.0-46.0); HGB 10.3 g/dL (12.0-15.5); Immature Grans % 0.4; Lymphocytes % 27.4; Mean Corp. HGB Concentration 31.5 g/dL (32.0-36.0); Mean Corpuscular Hemoglobin 35.3 pg (27.0-33.0); Mean Platelet Volume 9.6 fL (8.0-11.0); Monocytes % 7.9; Neutrophils % 62.8; RBC 2.92 m/cumm (4.00-5.20); RBC Distribution Width 11.4 % (11.7-14.6); White Blood Cell Count 2.77 k/cumm (4.4-10.8)
[2018-11-18 12:59] LABS: Platelet Count 55 x1000/uL (130-400)
[2018-11-18 13:00] LABS: Diff Comment RBC Morph Reviewed; Macrocytosis 2+; Polychromasia Present
== END 2018-11-18 11:35 ==
LOC: LBN 11:15
PROVIDERS: PCP Psychiatry & Neurology Neurology; Visit Provider Psychiatry & Neurology Neurology
DX: D69.59 Other secondary thrombocytopenia (principal)
CPT/HCPCS: 85025

== ENCOUNTER 2018-11-25 12:33 | Outpatient (REF) | payer BC, SELFPAY ==
[2018-11-25 13:22] LABS: Abs Immature Grans 0.04 k/cumm (0.0-0.09); Absolute Eosinophil Count 0.04 k/cumm (0.0-0.7); Absolute Lymphocyte Count 1.09 k/cumm (1.2-3.4); Absolute Monocyte Count 0.29 k/cumm (0.11-0.7); Absolute Neutrophil Count 2.36 k/cumm (1.2-6.7); HGB 10.8 g/dL (12.0-15.5); Lymphocytes % 28.5; Mean Corp. HGB Concentration 31.8 g/dL (32.0-36.0); Mean Corpuscular Hemoglobin 35.6 pg (27.0-33.0); Mean Corpuscular Volume 112.2 fL (80-95); Mean Platelet Volume 9.7 fL (8.0-11.0); Monocytes % 7.6; Neutrophils % 61.9; RBC 3.03 m/cumm (4.00-5.20); RBC Distribution Width 11.6 % (11.7-14.6); White Blood Cell Count 3.82 k/cumm (4.4-10.8)
[2018-11-25 13:35] LABS: Platelet Count 72 x1000/uL (130-400)
[2018-11-25 13:36] LABS: Macrocytosis 3+
[2018-11-25 17:04] LABS: Bilirubin Negative (Negative); Blood Negative (Negative); Clarity Clear (Clear); Glucose Negative (Negative); Ketones Negative (Negative); Leukocyte Esterase Small (Negative); Nitrite Negative (Negative); Urobilinogen 0.2 EU/dL (Up TO 0.2)
[2018-11-25 17:26] LABS: Bacteria Negative HPF (Negative); Epithelial Cells Rare HPF (Negative); RBC 0-2 (0-2)
[2018-11-25 17:27] LABS: C & S Indicated? Yes; Casts Negative LPF (Negative); Crystals Negative HPF (Negative); Mucus Negative (Negative)
== END 2018-11-25 12:53 ==
LOC: LBN 12:33
PROVIDERS: Family Medicine; PCP Psychiatry & Neurology Neurology; Visit Provider Psychiatry & Neurology Neurology
DX: D69.59 Other secondary thrombocytopenia (principal); R82.90 Unspecified abnormal findings in urine
CPT/HCPCS: 81003; 81015; 85025; 87086

== ENCOUNTER 2018-12-09 11:30 | Outpatient (CLI) | payer BC, SELFPAY ==
[2018-12-09 13:00] LABS: Absolute Eosinophil Count 0.04 k/cumm (0.0-0.7); Absolute Lymphocyte Count 0.56 k/cumm (1.2-3.4); Absolute Monocyte Count 0.16 k/cumm (0.11-0.7); Eosinophils % 1.9; HCT 34.2 % (36.0-46.0); HGB 10.9 g/dL (12.0-15.5); Lymphocytes % 25.9; Mean Corp. HGB Concentration 31.9 g/dL (32.0-36.0); Mean Corpuscular Hemoglobin 34.7 pg (27.0-33.0); Mean Corpuscular Volume 108.9 fL (80-95); Mean Platelet Volume 9.1 fL (8.0-11.0); Monocytes % 7.4; Neutrophils % 64.8; RBC 3.14 m/cumm (4.00-5.20); RBC Distribution Width 11.2 % (11.7-14.6); White Blood Cell Count 2.16 k/cumm (4.4-10.8)
[2018-12-09 13:06] LABS: ALT 21 U/L (14-59); AST 13 U/L (15-37); Albumin 3.7 g/dL (3.4-5.0); Alkaline Phosphatase 55 U/L (46-116); Anion Gap 7.6 mmol/L (3-11); BUN 7 mg/dL (7-18); Bilirubin, Total 0.2 mg/dL (0.2-1.0); CO2 29.4 mmol/L (21.0-32.0); CREATININE 1.07 mg/dL (0.55-1.02); Calcium 9.6 mg/dL (8.5-10.1); Chloride 108 mmol/L (98-107); Estimated GFR 54.73 (mL/min/1.73m2); Glucose 117 mg/dL (70-100); Potassium 3.4 mmol/L (3.5-5.1); Sodium 145 mmol/L (136-145); Total Protein 7.3 g/dL (6.4-8.2)
[2018-12-09 13:35] LABS: Platelet Count 64 x1000/uL (130-400)
[2018-12-09 13:36] LABS: Diff Comment PLT Morph Reviewed; Macrocytosis 3+; Polychromasia Present
== END 2018-12-09 11:50 ==
PROVIDERS: PCP Psychiatry & Neurology Neurology; Visit Provider Psychiatry & Neurology Neurology
DX: C71.9 Malignant neoplasm of brain, unspecified (principal)
CPT/HCPCS: 36415; 80053; 85025

== ENCOUNTER 2018-12-25 00:32 | Outpatient (CLI) | payer BC, SELFPAY ==
[2018-12-25 09:47] LABS: Absolute Eosinophil Count 0.01 k/cumm (0.0-0.7); Absolute Lymphocyte Count 0.58 k/cumm (1.2-3.4); Absolute Monocyte Count 0.24 k/cumm (0.11-0.7); Absolute Neutrophil Count 1.89 k/cumm (1.2-6.7); Eosinophils % 0.4; HCT 32.2 % (36.0-46.0); HGB 10.6 g/dL (12.0-15.5); Lymphocytes % 21.3; Mean Corp. HGB Concentration 32.9 g/dL (32.0-36.0); Mean Corpuscular Hemoglobin 34.5 pg (27.0-33.0); Mean Corpuscular Volume 104.9 fL (80-95); Mean Platelet Volume 8.9 fL (8.0-11.0); Monocytes % 8.8; Neutrophils % 69.5; RBC 3.07 m/cumm (4.00-5.20); RBC Distribution Width 11.1 % (11.7-14.6); White Blood Cell Count 2.72 k/cumm (4.4-10.8)
[2018-12-25 10:21] LABS: Diff Comment PLT Morph Reviewed; Macrocytosis 1+; Platelet Count 63 x1000/uL (130-400)
[2018-12-25 10:42] LABS: ALT 21 U/L (14-59); AST 19 U/L (15-37); Albumin 3.8 g/dL (3.4-5.0); Alkaline Phosphatase 61 U/L (46-116); Anion Gap 7.9 mmol/L (3-11); BUN 10 mg/dL (7-18); Bilirubin, Total 0.2 mg/dL (0.2-1.0); CO2 29.1 mmol/L (21.0-32.0); CREATININE 0.96 mg/dL (0.55-1.02); Calcium 9.3 mg/dL (8.5-10.1); Chloride 108 mmol/L (98-107); Glucose 85 mg/dL (70-100); Potassium 3.6 mmol/L (3.5-5.1); Sodium 145 mmol/L (136-145); Total Protein 6.7 g/dL (6.4-8.2)
== END 2018-12-25 00:52 ==
PROVIDERS: PCP Psychiatry & Neurology Neurology; Visit Provider Psychiatry & Neurology Neurology
DX: C71.9 Malignant neoplasm of brain, unspecified (principal)
CPT/HCPCS: 80053; 85025

== ENCOUNTER 2019-04-02 10:16 | Emergency (ER) | payer BC, SELFPAY ==
[2019-04-02] VITALS (29 sets, daily range): BP systolic 110–149; BP diastolic 68–100; PULSE 52–95; RESP 10–18; TEMP 36.3–36.7; O2SAT 92–100
--- NOTE | 2019-04-02 10:21 | ED.GENADUL_ITS ---
Discharge Plan Disposition Patient Disposition: [facility] Condition: Serious Discharge Details Chief Complaint: GenMedical Clinical Impression: Glioblastoma, Midline shift of brain, UTI (urinary tract infection), Acute left-sided muscle weakness Primary Care Provider: Lauren Sexton ED Provider: Fiona Mccoy Home Meds and New Rx's Prescriptions: No Action clonazepam [Klonopin] 0.5 mg tablet 0.25 mg PO BID RF: 0 vitamin B complex [B Complex 1] tablet 1 tab PO DAILY RF: 0 acetaminophen 500 mg capsule 500 mg PO Q6H PRNRF: 0 levetiracetam [Keppra] 750 mg tablet 1,500 mg PO BID RF: 0 docusate sodium [Colace] 100 mg capsule 100 mg PO BID RF: 0 trazodone 100 mg tablet 100 mg PO QHS Qty: 60 RF: 5 cyanocobalamin (vitamin B-12) [Vitamin B-12] 500 mcg Tablet 1,000 mcg PO DAILY RF: 0 magnesium 200 mg Tablet 400 mg PO DAILY RF: 0 potassium chloride 20 mEq Tablet Extended Release 20 meq PO DAILY RF: 0 Discharge Data Discharge Date/Time-TO BE ENTERED AT DEPARTURE: 04/02/19 17:56 Medical Decision Making <ISIDRO Blankenship - Last Filed: 04/07/19 07:56> Patient is a pleasant 49-year-old female, accompanied by her , with chief complaint of progressive weakness in the past week. Patient has known right frontal glioblastoma multiform. Patient had a craniotomy for initial tumor approximately 14 months ago. Had been doing well initially postoperatively. However, they recently found recurrence in the right frontal lobe. She states that she began having a right-sided frontal headache 5 days ago. began noting the weakness the subsequent day. They report this weakness has been steadily increasing. At this point, patient is not undergoing treatment but is in discussion with neuro-oncology regarding repeat craniotomy versus infusion. Patient was treated postoperatively with oral chemotherapy. She reports that she was working with physical therapy and had been doing quite well. However, she notes that over the past week she has progressively been becoming much more weak. Patient's reports that he has noted left-sided weakness. Has noted her having difficulty with ambulation and greatly favoring the left upper extremity. They deny any fevers or chills. She does report some discomfort on the right side of her neck and feels tight. No recent travel. No cough. No rash. States that she is had increased urinary frequency but denies any dysuria. No change in bowel habits. Denies any nausea vomiting. Patient has noted that she is had difficulty doing fine motor movements with the left hand, since we proceeded the proximal weakness that she is having difficulty elevating the left arm up to her face. On exam, patient appears chronically ill. She was able to ambulate to the bathroom unassisted but does have an antalgic gait and notable weakness on the left side. She has difficulty with [id number] testing and this appears to be more from proximal weakness limiting her ability to bring her hand up to her face. Rather, she is trying to bring her face down to her hand. Her reflexes are intact bilaterally. She does have good strapper operator strength. She does have a slight lag in the left eyelid but reports that this is typical. She also has a slight droop on the left side of her mouth but again, they report that this is chronic and associated with her history of cleft palate with surgical repair. She has weakness in left lower extremity. She has no nuchal rigidity. Pupils are equal round and reactive. Will review labs. I am concerned the patient has progression of her tumor versus surrounding inflammatory effect edema, possible infectious source such as abscess. Reviewed imaging. Patient has midline shift on CT. Compared to recent MRI[place] [facility] and this is new. Patient has taken 1500 Keppra this morning. Will give 10mg Dexamethasone and 20g of Mannitol. Consult requested with neurosurgery at [facility] and neurology at [facility]. These are the teams working with the patient but plan is to transfer to [facility] pending acceptance, as this is where she receives her neurosurgery care. Main mass is enlarged to 4cm, this is up 1cm from February. Enlarged edema with 3mm of midline shift consulted with [facility] Dr. Loredo. She advised patient be transferred to [facility] for NSCU care. Admitting physician Dr. Jeffers. Awaiting bed placement. She agrees with the care delivered thus far and does not advise any further intervention at this point. Spoke with neurology at [facility], we discussed current symptoms. She will discuss case with patients neurologist, they are aware of plan to transfer to [facility]. Patient also has a urinary tract infection. No postvoid residual. We will begin the patient on IV ceftriaxone. Patient given 1g IV acetaminophen for TOBAR and 2mg morphine. She is fatigued and resting. Remains stable. Delay in transfer secondary to bed placement issues. Patient has been sleeping. Remains comfortable. No seizure activity. Patient transferred to [facility]. <Ludin Grider MD - Last Filed: 04/02/19 20:20> Patient was seen, treated and disposition by ISIDRO Mccoy. I was not asked to evaluate the patient. I did follow along with care and agree with plan and treatment as documented by ISIDRO Mccoy. I did call [facility] transfer center to request expedited transfer given severity of illness. Screening ECG was reviewed and interpreted by me: Normal sinus rhythm 70 bpm, normal axis, nondiagnostic. HPI <ISIDRO Blankenship - Last Filed: 04/07/19 07:56> General Mode of arrival: ambulatory . Date/Time Provider Initiated Documentation: 04/02/19 10:21 . Limitations to Documentation: no limitations . Information obtained by: patient, family () and RN notes reviewed . History of Present Illness 49 year old F presents to the emergency department with the chief complaint of weakness, increased urinary frequency, described as moderate, Patient started experiencing this day(s) (5) and it has been constant (progressively worsening). No relieving factors improve symptom(s), Movement worsens symptoms . Patient notes headaches, loss of appetite and weakness; denies confusion, chest pain, cough, diaphoresis, fever/chills, nausea/vomiting, rash, seizure (hx of seizures, no increase in seizure activity) and syncope. Patient did receive the following treatments prior to arrival, none Related Data Home Medications Medication Instructions Recorded Confirmed acetaminophen 500 mg capsule 500 mg PO Q6H PRN 02/11/18 04/02/19 clonazepam 0.5 mg tablet 0.25 mg PO BID tab 02/11/18 04/02/19 vitamin B complex 1 tab PO DAILY 02/11/18 01/06/19 docusate sodium 100 mg capsule 100 mg PO BID 03/04/18 04/02/19 trazodone 100 mg tablet 100 mg PO QHS #60 tab 04/19/18 04/02/19 levetiracetam 750 mg tablet 1,500 mg PO BID tab 01/06/19 04/02/19 cyanocobalamin (vitamin B-12) 1,000 mcg PO DAILY 04/02/19 04/02/19 [Vitamin B-12] magnesium 400 mg PO DAILY 04/02/19 04/02/19 potassium chloride 20 meq PO DAILY 04/02/19 04/02/19 Previous Rx's Medication Instructions Recorded trazodone 100 mg tablet 100 mg PO QHS #60 tab 04/19/18 Allergies Allergy/AdvReac Type Severity Reaction Status Date / Time oxcarbazepine Allergy Skin Rash Unverified 04/02/19 10:22 [From Trileptal] sulfamethoxazole Allergy Skin Rash Unverified 04/02/19 10:22 [From Bactrim] trimethoprim [From Bactrim] Allergy Skin Rash Unverified 04/02/19 10:22 sertraline [From Zoloft] AdvReac increased Verified 04/02/19 10:22 anxiety Review of Systems <ISIDRO Blankenship - Last Filed: 04/07/19 07:56> Constitutional Constitutional: Reports as per HPI, Denies chills, Reports fatigue, Denies fever(s), Reports frequent falls, Reports headache(s), Denies snoring and Reports weakness Eyes Eyes: Reports as per HPI, Denies blurry vision, Denies change in vision and Reports photophobia ENT Ears, Nose, Mouth, and Throat: Denies vertigo, Reports headache(s) and Reports neck pain (right sided lateral, states headpain radiates to this area) Cardiovascular Cardiovascular: Reports as per HPI, Denies chest pain, Denies lightheadedness, Denies radiating jaw, neck or arm pain, Denies dyspnea and Denies dyspnea on exertion Respiratory Respiratory: Reports as per HPI, Denies chest congestion, Denies cough, Denies dyspnea, Denies dyspnea on exertion, Denies snoring, Denies stridor and Denies wheezing Gastrointestinal Gastrointestinal: Reports as per HPI, Denies abdominal pain, Denies change in bowel habits, Denies nausea and Denies vomiting Genitourinary Genitourinary: Reports as per HPI Musculoskeletal Musculoskeletal: Reports as per HPI, Denies back pain, Denies myalgias, Denies muscle cramps, Reports neck pain (right sided lateral, states headpain radiates to this area) and Denies numbness Integumentary/Breasts Skin/Breast: Reports as per HPI and Denies rash Neurologic Neurologic: Reports as per HPI, Denies abnormal movements, Denies abnormal speech, Denies behavioral changes, Denies confusion, Denies vertigo, Reports frequent falls, Reports headache(s), Denies focal weakness, Denies numbness, Denies sensory deficit and Reports weakness Psychiatric Psychiatric: Denies behavioral changes and Denies confusion Endocrine Endocrine: Reports fatigue Allergic/Immunologic Allergic/Immunologic: Denies wheezing PFSH <ISIDRO Blankenship - Last Filed: 04/07/19 07:56> Medical History Anxiety as acute reaction to exceptional stress (Resolved) Counseling regarding advance directives and goals of care (Acute) Depression (Chronic) Drug rash (Resolved) Glioblastoma (Chronic) Glioblastoma multiforme of frontal lobe (Chronic) right; with recurrence 02/2019 Hypertension (Chronic) Palliative care patient (Acute) Post herpetic neuralgia (Resolved) Seizure disorder (Chronic) 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 Daughter No problems noted. Brother , ALS ALS (amyotrophic lateral sclerosis) Social History Smoking/Tobacco Use Status: Never Alcohol Intake: former Drug use: Never Substance use type: does not use Caregiver/Support person: Yes Household members: spouse Housing: house Number of Children: 2 number of grandchildren: 0 Education Level: college Do you need help understanding health information?: Rarely current occupation: nurse at [employer]; out on disability Pets and animals: No What is your relationship status?: How often do you talk on the phone with friends or family?: three or more times per week How often do you get together with friends or relatives?: three or more times per week Panel score (0-1 are the most socially isolated patients): 2 What type of physical activity do you participate in: walking and irregular exercise Duration: 15-30 minutes/day Special josé needs: No Agree to transfusion: Yes Seatbelt use: always Working smoke detector in home: Yes Fire extinguisher in home: Yes Do you feel safe at home: Yes Do you feel safe in your relationship?: Yes Additional Social history: On disability. Feb 2019 MRI showed recurrence. Tumor board recommended repeat craniotomy. Back on [employer] ([employer]). House in [place] geographically isolated and isolating. Working on ways to stay socially active this winter: crafting, getting together with friends. Had excellent [place]. Exam <ISIDRO Blankenship - Last Filed: 04/07/19 07:56> Const General: cooperative, not healthy appearing, comfortable, no acute distress, well developed, well groomed and ill appearing chronically Nutritional Appearance: well nourished and overweight Orientation: alert, awake and oriented x3 HENMT Head: abnormal to inspection (incision from craniotomy appears to have healed well), no palpable skull fracture, normocephalic and atraumatic Ears: hearing grossly normal bilaterally, external ears normal and TM's normal bilaterally General nose exam: external nose normal Face and sinus: abnormal facial exam (left sided weakness with smiling, incision from cleft palate noted) Mouth: oral mucosae normal and moist mucous membranes Throat: posterior oropharynx normal Eyes General: appearance normal, both eyes and all related structures Alignment and Position: alignment normal Periorbital: periorbital findings normal Eyelids: eyelids normal Sclera: sclerae normal Cornea: corneas normal Pupils: PERRL EOM: EOM intact bilaterally Neck Neck: normal visual inspection, full ROM, no lymphadenopathy, no meningeal signs, negative Brudzinski's sign and negative Kernig's sign Resp Effort & Inspection: normal respiratory effort, able to speak in complete sentences and no respiratory distress Auscultation: clear to auscultation bilaterally, no rales, no rhonchi and no wheezes Cardio Rate: regular rate Rhythm: regular rhythm Heart Sounds: S1 normal and S2 normal GI Inspection: normal to inspection and non-distended Palpation: soft, no hepatosplenomegaly, not firm, no guarding, not rigid and nontender Percussion: normal to percussion Auscultation: normal bowel sounds Back/Spine/Pelvis Back: no CVA tenderness Cervical Spine: normal cervical lordosis and cervical ROM normal Skin General skin exam: no rashes or lesions noted Neuro General: alert, awake and oriented x3 Cranial Nerves: abnormalities within CN's II-XII (CN 7 deficit with smiling on left, reported to be chronic) and EOM intact bilaterally (no CN deficit) Cognition: normal cognition Speech: speech normal Gait: normal gait Motor: tone not normal throughout, strength not 5/5 throughout, pronator drift, no fasciculations, pronator drift pronator drift of left upper extremity and strength abnormal (left sided weakness in upper and lower extremity) Sensory Exam: no sensory deficits noted DTR's: Rt Triceps: 2+, Lt Triceps: 2+, Rt Biceps: 2+, Lt Biceps: 2+, Rt Brachioradialis: 2+, Lt Brachioradialis: 2+, Rt Patellar: 2+, Lt Patellar: 2+, Rt Ankle: 2+ and Lt Ankle: 2+ Coordination: [id number] test abnormal (bends head down to preform on left side) and [id number] test normal (unable to preform secondary to left sided weakness) Extrem General: normal to inspection, normal capillary refill, no pedal edema and no calf tenderness Psych Appearance: grossly normal and well kempt Mental Status: mental status grossly normal Speech and Movement: speech and movement normal Affect: sad Attitude: cooperative Thought Process: normal
[2019-04-02 10:51] LABS: Bilirubin Negative (Negative); Blood Trace-intact (Negative); Clarity Clear (Clear); Glucose Negative (Negative); Ketones Negative (Negative); Leukocyte Esterase Small (Negative); Nitrite Negative (Negative); Urobilinogen 0.2 EU/dL (Up TO 0.2)
--- NOTE | 2019-04-02 11:00 | DI.CT_ITS ---
EXAM: CT HEAD WO/W CLINICAL HISTORY: known right frontal tumor, weakness on left side TECHNIQUE: The exam was performed without and with contrast. COMPARISON: MRI BRAIN WWO from 02/24/2019 FINDINGS: There has been interval increase in size of the mass in the right parietal lobe. This now measures 4 centimeters in diameter. It compares with 3 cm on the prior examination. There has also been an incr ease in the surrounding edema in the right frontal and parietal lobes. This results in a 3 mm shift of the midline to the left. The mass in the anterior right frontal lobe appears stable. No new mass es are identified. No intracranial hemorrhage is identified. Visualized paranasal sinuses are clear as are the mastoid air cells. The calvarium is intact. There is a prior right parietal craniotomy. IMPRESSION: Interval increase in size of the main right parietal lobe mass now measuring 4 cm. Increased surroun ding edema resulting in a 3 mm shift of the midline to the left.
[2019-04-02 11:15] LABS: WBC 20-50 HPF (0-5)
[2019-04-02 11:16] LABS: Bacteria Few HPF (Negative); C & S Indicated? Yes; Casts Negative LPF (Negative); Crystals Negative HPF (Negative); Epithelial Cells Few HPF (Negative); Mucus Negative (Negative); Other Cells Few Renal (Negative)
[2019-04-02] MEDS: Normal Saline Flush 10 ML SYR IVP (11:31)
[2019-04-02] MEDS: LORazepam 2 MG/ML VIAL 0.5 MG IVP (11:31)
[2019-04-02] MEDS: Normal Saline 1,000 ML 1000 ML IV (11:31)
[2019-04-02 11:46] LABS: Lactate 1.8 mmol/L (0.6-1.4)
[2019-04-02] MEDS: Normal Saline - Diluent 50 ML VIAL IV (11:48)
[2019-04-02 11:49] LABS: Absolute Basophil Count 0.01 k/cumm (0.0-0.2); Absolute Eosinophil Count 0.02 k/cumm (0.0-0.7); Absolute Lymphocyte Count 0.85 k/cumm (1.2-3.4); Absolute Monocyte Count 0.25 k/cumm (0.11-0.7); Absolute Neutrophil Count 2.47 k/cumm (1.2-6.7); Basophils % 0.3; Eosinophils % 0.6; Lymphocytes % 23.6; Mean Corp. HGB Concentration 33.3 g/dL (32.0-36.0); Mean Corpuscular Hemoglobin 33.1 pg (27.0-33.0); Mean Corpuscular Volume 99.2 fL (80-95); Mean Platelet Volume 9.1 fL (8.0-11.0); Monocytes % 6.9; Neutrophils % 68.6; Platelet Count 104 x1000/uL (130-400); RBC 3.63 m/cumm (4.00-5.20); RBC Distribution Width 11.4 % (11.7-14.6)
[2019-04-02] MEDS: Omnipaque 350 MG/ML 100 ML BTL IJ (11:49)
[2019-04-02 12:05] LABS: C-Reactive Protein 0.18 mg/dL (0.0-0.3)
--- NOTE | 2019-04-02 12:05 | DI.RAD_ITS ---
EXAM: XR CHEST 2V PA LATERAL CLINICAL HISTORY: weakness. TECHNIQUE: 2D digital imaging was performed. COMPARISON: No exams were available for comparison FINDINGS: LUNGS: Clear. No pleural abnormality seen. HEART: Normal. MEDIASTINUM: Normal. OTHER FINDINGS:Normal. BONE:Normal. IMPRESSION: No acute pulmonary findings.
[2019-04-02 12:08] LABS: ALT 16 U/L (14-59); AST 12 U/L (15-37); Albumin 4.3 g/dL (3.4-5.0); Alkaline Phosphatase 71 U/L (46-116); Anion Gap 9.7 mmol/L (3-11); BUN 9 mg/dL (7-18); Bilirubin, Total 0.3 mg/dL (0.2-1.0); CO2 29.3 mmol/L (21.0-32.0); Calcium 9.9 mg/dL (8.5-10.1); Chloride 106 mmol/L (98-107); Estimated GFR 47.75 (mL/min/1.73m2); Glucose 99 mg/dL (74-106); Magnesium 1.8 mg/dL (1.8-2.4); Potassium 3.8 mmol/L (3.5-5.1); Sodium 145 mmol/L (136-145); Total Protein 7.4 g/dL (6.4-8.2); Troponin I < 0.05 ng/Ml (<0.06)
[2019-04-02 12:24] LABS: ESR 53 mm/hr (0-20)
[2019-04-02] MEDS: Dexamethasone 10 MG/ML VIAL IVP (12:30)
--- NOTE | 2019-04-02 12:42 | DI.VRAD_ITS ---
PROCEDURE INFORMATION: Exam: CT Head With Contrast Exam date and time: 04/02/2019 11:10 AM Age: 49 years old Clinical indication: Weakness, extremity; Left; Prior surgery; Surgery date: 6+ months; Surgery type: 2017January 07 TECHNIQUE: Imaging protocol: Computed tomography of the head with intravenous contrast. Contrast material: OMNIPAQUE 350; Contrast volume: 100 ml; Contrast route: IV; COMPARISON: MRI BRAIN WWO 02/24/2019 2:36 PM FINDINGS: Brain: Interval growth of the main mass in the posterior right frontal lobe measuring roughly 4 cm (previously 3 cm). Increased surrounding vasogenic edema in the right frontal and parietal lobes, resulting in new approximate 3 mm right to left midline shift. No transtentorial herniation. Satellite mass in the anterior right frontal lobe is stable in size. No new mass. No hemorrhage. No evidence for ischemic infarction. Ventricles: Agnieszka-tumoral edema partially effaces the right lateral ventricle. No hydrocephalus. Bones/joints: Unremarkable. No acute fracture. Sinuses: Visualized sinuses are unremarkable. No fluid levels. Mastoid air cells: Visualized mastoid air cells are well aerated. Soft tissues: Unremarkable. IMPRESSION: 1. Interval enlargement of the main right frontal lobe mass with increased surrounding edema and new right to left midline shift. 2. No hemorrhage. Note: Results discussed with MICHEL BANUELOS at 04/02/2019 12:36 PM EST. Dictated and Authenticated by: Yazmin Ramirez MD. Ordering:SHAHNAZ Jaimes MD
--- NOTE | 2019-04-02 12:42 | DI.VRAD_ITS ---
PROCEDURE INFORMATION: Exam: XR Chest, 2 Views Exam date and time: 04/02/2019 11:58 AM Age: 49 years old Clinical indication: Wheezing TECHNIQUE: Imaging protocol: XR of the chest Views: 2 views. COMPARISON: No relevant prior studies available. FINDINGS: Lungs: Unremarkable. No consolidation. Pleural space: Unremarkable. No pleural effusion. No pneumothorax. Heart/Mediastinum: Unremarkable. No cardiomegaly. Bones/joints: Unremarkable. IMPRESSION: No acute findings. Dictated and Authenticated by: Yazmin Ramirez MD. Ordering:SHAHNAZ Jaimes MD
--- NOTE | 2019-04-02 13:46 | NUR.NOTE ---
Nursing Note:1205: Pt assisted to bedside commode. Able to transfer from bed to commode with stand by assist. Back to bed with stand by assist. Tolerated well.
--- NOTE | 2019-04-02 13:47 | NUR.NOTE ---
Nursing Note:1335: Pt back up to bedside commode. Transferred with stand by assist only. Back to bed. tolerated well.
[2019-04-02] MEDS: cefTRIAXone 1 GM/50 ML BAG IVPB (13:54)
[2019-04-02] MEDS: ACETAMINOPHEN 1,000 MG/100 ML BTL 400 MG IVPB (16:14)
--- NOTE | 2019-04-04 17:22 | NUR.NOTE ---
Nursing Note: Faxed urine culture result to [facility]. . Taryn David.
== END 2019-04-02 17:56 | disposition short-term general hospital (02) ==
PROVIDERS: Emergency Provider Physician Assistant; PCP Family Medicine
DX: C71.1 Malignant neoplasm of frontal lobe (principal); R90.89 Other abnormal findings on diagnostic imaging of central nervous system; N39.0 Urinary tract infection, site not specified; M62.81 Muscle weakness (generalized); I10 Essential (primary) hypertension
CPT/HCPCS: 36415; 36416; 80053; 82962; 85652; 87040; 93005; 96361; 96365; 96366; 96375; 99285; 70470; 71046; 81003; 81015; 83605; 83735; 84484; 85025; 86140; 87086; 93010; J0131; J0696; J1100; J2060; J3490; L3650

== ENCOUNTER 2019-06-15 09:53 | Inpatient (IN) | payer OTHER, SELFPAY ==
[2019-06-15 13:17] VITALS: BP 178/113; PULSE 86; RESP 16; TEMP 36.9; O2SAT 95
--- NOTE | 2019-06-15 14:36 | HPE_ITS ---
Date of service: 06/15/19 Time of Service: 14:36 Assessment and Plan Assessment and plan (1) Headache due to intracranial disease: Status: Acute Assessment and plan: Increased her fentanyl patch on this admission to 50 mcg. stopped her oxycodone as I think this was contributing to her confusion. is on dexamethasone. Her neuro-oncologist advised we can go up to a max of 24 mg total per day to treat. Currently on 4 mg bid scheduled with prn mid-day 4 mg dose (2) Recurrent cancer: Status: Chronic Assessment and plan: Cancer never disappeared, but was under control for most of a year. Had a great summer last summer. I have lived longer than I expected Emilee has said many times. (3) Glioblastoma multiforme of frontal lobe: Status: Chronic Assessment and plan: Most recent imagining from MRI done at [facility] showed leptomeningeal spread. Multiple tumors in both hemispheres and particularly cerebellum. (4) Hospice care patient: Status: Acute Assessment and plan: Here on hospice symptom management. The expectation is that she will on this admission. Yesterday, I guessed she had days. Today, she may have 1-2 weeks. Hard to say. Kasia Trevizo is involved. Family support offered. History of Present Illness History of Present Illness Chief Complaint: end-stage glioblastoma, end-of-life care, hospice sx managment Narrative: Emilee is a 49 yo woman who had her first seizure in October 2017. She did not seek care or have a full work up at that time. Then, in December 2017, she had a full blown seizure. An ambulance was called. Head imaging done in the ER showed a likely glioblastoma. She [place] [facility] and tumor resection. This was followed by radiation and chemotherapy, with temodar. Unfortunately, she developed thrombocytopenia from her chemo. She then developed a whole body rash from her seizure medication. She briefly went back to work about a year ago; she had a grand mal seizure at work so she had to apply for disability. 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, where she was well-respected and loved. Emilee has also tried Optune, a local electric field worn as a cap to treat her tumor. Most recently, she tried Avastin. Despite these multiple interventions, her tumors have progressed rapidly between first week of March and second week of May. I spoke to her neuro-oncologist, Dr Tamika Engle, about her prognosis. I spoke to her 05/31 and Tamika thought that Emilee likely had 1-2 months. She enrolled in hospice soon after that visit. I had seen her for more than a year for palliative care. She knew her glioblastoma was a terminal illness. We've talked about EOL and hospice care for several months. She had a few excellent months, between and the 02 of April when she went to the ER with new focal weakness. She was [place] [facility] During that visit, the oncology team discussed a repeat craniotomy with implantation of chemo seeds. She opted against that. The last month has been very difficult. She has required pain management for severe headaches. Her gait has become quite ataxic. She has just developed urinary incontinence. She can still speak, but doesn't always make sense. She appears better today than she did when I did an extended home visit yesterday. Today, she has only taken one oxycodone pill. I think that medication was adding to her confusion yesterday. I did not order it on admission. Emilee is aware she is dying. She told me that she left her house for the last time. She said that she will get her last iv on this admission. Based on her condition yesterday, I thought she had only days left to live. Today, I am less sure. She may live more than a week. She will declare herself soon. I could be seeing an uptick in clarity due to her moving to inpatient care. Emilee had always planned on coming into the hospital when she was actively dying. She is relieved to be here now. Review of Systems Constitutional Constitutional: Reports daytime sleepiness, Reports difficulty sleeping, Reports fatigue, Reports frequent falls, Reports headache(s), Reports increased appetite, Reports lethargy, Reports weakness and Reports weight gain (on steroids for her cerebral edema) Eyes Eyes: Reports change in vision and Reports other (keeps them closed all the time) ENT Ears, Nose, Mouth, and Throat: Reports headache(s) and Reports disequilibrium Cardiovascular Cardiovascular: Reports dyspnea on exertion Respiratory Respiratory: Reports dyspnea on exertion Gastrointestinal Gastrointestinal: Reports constipation and Reports heartburn Genitourinary Genitourinary: Reports urinary incontinence Musculoskeletal Musculoskeletal: Reports abnormal gait (shuffles, tiny steps, cannot back up, uses walker), Reports atrophy, Reports muscle weakness and Reports stiffness Integumentary/Breasts Skin/Breast: Reports erythema Neurologic Neurologic: Reports abnormal speech, Reports abnormal gait (shuffles, tiny steps, cannot back up, uses walker), Reports confusion (much improved from day prior to admission), Reports frequent falls, Reports headache(s), Reports lack of coordination, Reports memory loss, Reports disequilibrium and Reports weakness Psychiatric Psychiatric: Reports anxiety, Reports change in appetite, Reports confusion (much improved from day prior to admission), Reports depression, Reports difficulty concentrating, Reports hopelessness and Reports memory loss Endocrine Endocrine: Reports fatigue [facility] Medical History (Updated 06/15/19 @ 14:54 by Aleena Grimes MD) Anxiety as acute reaction to exceptional stress (Resolved) Anxiety associated with cancer diagnosis (Acute) Ataxia (Chronic) nearly resolved, not using walker Counseling regarding advance directives and goals of care (Acute) Depression (Chronic) DNI (do not intubate) (Acute) DNR (do not resuscitate) (Acute) Drug rash (Resolved) Encounter for hospice care discussion (Acute) Glioblastoma (Chronic) Glioblastoma multiforme of frontal lobe (Chronic) right; with recurrence 02/2019; further progression on 05/26/19 MRI; discussed trying keytruda with Dr Engle, but only 10% chance of working temporarily and she would have to travel to [place] for treatment. Too much for her. Electing hospice care. Headache due to intracranial disease (Acute) Hospice care patient (Acute) Hypertension (Chronic) Palliative care patient (Acute) POLST (Physician Orders for Life-Sustaining Treatment) (Acute) Done 06/01/19. DNR/DNI. Post herpetic neuralgia (Resolved) Recurrent cancer (Chronic) right frontal lobe; glioblastoma Seizure disorder (Chronic) Thrombocytopenia due to drugs (Resolved) UTI (urinary tract infection) (Inactive) Surgical History Cleft palate (Resolved) H/O craniotomy (Chronic) Family History (Updated 06/01/19 @ 17:32 by Aleena Grimes MD) Mother Depression Diabetes Hypertension Stroke TBI (traumatic brain injury) Father Diabetes Heart disease Brother Colon cancer on hospice on [facility] [address] Son No problems noted. Daughter No problems noted. Brother , ALS ALS (amyotrophic lateral sclerosis) Brother No problems noted. Brother No problems noted. Social History (Updated 06/15/19 @ 14:56 by Aleena Grimes MD) Smoking/Tobacco Use Status: Never Alcohol Intake: former Drug use: Never Substance use type: does not use Caregiver/Support person: Yes Household members: spouse Housing: house Number of Children: 2 number of grandchildren: 0 Education Level: college Do you need help understanding health information?: Rarely current occupation: nurse at [employer]; out on disability Pets and animals: No Current gender identity: female What is your relationship status?: How often do you talk on the phone with friends or family?: three or more times per week How often do you get together with friends or relatives?: three or more times per week Panel score (0-1 are the most socially isolated patients): 2 What type of physical activity do you participate in: assisted ambulation Duration: < 15 minutes/day Frequency: daily Special josé needs: No Agree to transfusion: No Seatbelt use: always Working smoke detector in home: Yes Fire extinguisher in home: Yes Do you feel safe at home: Yes Do you feel safe in your relationship?: Yes Additional Social history: Feb 2019 MRI showed recurrence[place] [facility] [place] repeat craniotomy; Emilee then consulted with [facility]. They suggested avastin, which seemed to help for 3 mos. 05/26/19 imaging showed further progression. House in [place] geographically isolated and isolating. Daughter Marianna helping at home.Said good-bye to her [place] [facility] on [facility] last weekend in May. Van has flexible job; can take leave to be with her. Always planned on coming into hospital when she is actively dying. Meds Home Medications and Allergies Home Medications Medication Instructions Recorded Confirmed Type acetaminophen 500 mg capsule 500 mg PO Q6H PRN 02/11/18 04/02/19 History clonazepam 0.5 mg tablet 0.25 mg PO BID tab 02/11/18 04/02/19 History docusate sodium 100 mg capsule 100 mg PO BID 03/04/18 04/02/19 History trazodone 100 mg tablet 100 mg PO QHS #60 tab 04/19/18 06/15/19 Rx levetiracetam 750 mg tablet 1,500 mg PO BID tab 01/06/19 06/15/19 History cyanocobalamin (vitamin B-12) 1,000 mcg PO DAILY 04/02/19 04/02/19 History [Vitamin B-12] magnesium 400 mg PO DAILY 04/02/19 04/02/19 History potassium chloride 20 meq PO DAILY 04/02/19 04/02/19 History dexamethasone 1 mg tablet See Rx Instructions PO DAILY 04/28/19 04/28/19 History pantoprazole 40 mg tablet,delayed 40 mg PO BID tab 04/28/19 06/15/19 History release fentanyl 12 mcg/hr transdermal 1 patch TD Q72H #5 each MDD 1 06/12/19 Rx patch fentanyl 25 mcg/hr transdermal 1 patch TD Q72H #5 each MDD 1 06/12/19 Rx patch quetiapine 25 mg tablet See Rx Instructions PO DAILY #60 06/12/19 Rx tab Allergies Allergy/AdvReac Type Severity Reaction Status Date / Time oxcarbazepine Allergy Skin Rash Unverified 04/02/19 10:22 [From Trileptal] sulfamethoxazole Allergy Skin Rash Unverified 04/02/19 10:22 [From Bactrim] trimethoprim [From Bactrim] Allergy Skin Rash Unverified 04/02/19 10:22 sertraline [From Zoloft] AdvReac increased Verified 04/02/19 10:22 anxiety Exam Const General: no acute distress, anxious and ill appearing Nutritional Appearance: overweight Orientation: awake, oriented to person and oriented to place [facility] Head: atraumatic, scalp lesion (scar right frontal region, hair thinner over that area of skull) and other (bruising under left eye) Ears: external ears normal General nose exam: external nose normal Face and sinus: scar (from cleft lip repair) Mouth: muffled voice Eyes Eyelids: other (keeps them closed constantly; has to be asked to open her eyes) Conjunctivae: conjunctival abnormality (injected but no discharge) bilaterally Neck Neck: no lymphadenopathy and no JVD Chest Chest: normal inspection of the chest Resp Effort & Inspection: normal respiratory effort and able to speak in complete sentences Auscultation: clear to auscultation bilaterally Cardio Jugular venous pressure: no JVD Rate: regular rate Rhythm: regular rhythm Heart Sounds: S1 normal and S2 normal GI Inspection: obesity Palpation: soft Auscultation: normal bowel sounds Skin General skin exam: dry skin Trauma: no lacerations or abrasions Hair: normal Nails: normal Neuro General: patient awake, gait abnormal and patient confused Cognition: abnormal cognition (sometimes oriented, sometimes not; delirium) Speech: abnormal speech (though close to normal on admission; yesterday garbled, slurred, hallucinat) Gait: festinating, shuffling and gait assisted Method: walker Motor: strength abnormal Extrem General: capillary refill normal and no pedal edema Psych Appearance: grossly normal Speech and Movement: delayed speech, restless (moving her toes and feet constantly), slowed movement and slurred speech Mood: anxious mood and dysthymic mood Affect: sad and blunted Attitude: cooperative Thought Process: impoverished Insight: limited Judgment: limited Results Last Vital Signs Temp 98.4 F 06/15/19 13:17 Pulse 86 06/15/19 13:17 Resp 16 06/15/19 13:17 BP 178/113 H 06/15/19 13:17 Pulse Ox 95 06/15/19 13:17 COVID-19 Screening Traveled to ID from one of the affected countries or regions?: NO Recent travel in the [place] within the last 14 days?: No Recent out of the country travel within the last 14 days?: No Exposure or possible exposure to illness during travel?: No Had IN PERSON contact w/suspected or confirmed C-19 person: No Have you had the following symptoms in the past few days?: No Symptoms noted since travel?: No Symptoms
[2019-06-15] MEDS: fentaNYL 50 MCG PATCH TD (16:56)
[2019-06-15] MEDS: Dexamethasone 4 MG TAB PO ×2 (17:59→23:40)
[2019-06-15] MEDS: LORazepam 1 MG TAB PO (18:09)
[2019-06-15] MEDS: Calcium Carbonate *TUMS* 500 MG CHEW PO (18:40)
[2019-06-15] MEDS: Pantoprazole 40 MG TABCR PO (20:00)
[2019-06-15] MEDS: clonazePAM 0.5 MG TAB 0.25 MG PO (20:00)
[2019-06-15] MEDS: levETIRAcetam 500 MG TAB 1500 MG PO (20:01)
[2019-06-15] MEDS: Senna TAB PO (20:08)
[2019-06-15] MEDS: traZODone 100 MG TAB PO (20:09)
--- NOTE | 2019-06-16 02:13 | NUR.NOTE ---
Nursing Note: Pt transferred to Rm 205. Denied of pain, assisted to bathroom with walker, needs direction since pt both eyes are half closed. Refused to have saeed as ordered. Able to swallow pills without difficulty. Tums given as requested after dexa meds given. and with good effect. was around and will come back at 0700 am. Voiding well. Seizures pads on bed inplaced. Call lights within reach.
[2019-06-16] MEDS: Dexamethasone 4 MG TAB PO ×3 (06:20→18:05)
[2019-06-16] MEDS: Calcium Carbonate *TUMS* 500 MG CHEW PO ×2 (06:21→16:38)
[2019-06-16 07:53] LABS: COVID-19 RT-PCR UVMMC Result Negative (Negative)
[2019-06-16] MEDS: Acetaminophen 325 MG TAB PO ×3 (08:22→19:52)
[2019-06-16] MEDS: clonazePAM 0.5 MG TAB 0.25 MG PO ×2 (08:23→18:05)
[2019-06-16] MEDS: levETIRAcetam 500 MG TAB 1500 MG PO ×2 (08:23→18:05)
[2019-06-16] MEDS: Pantoprazole 40 MG TABCR PO ×2 (08:23→18:04)
--- NOTE | 2019-06-16 09:14 | PHA.REVIEW ---
Pharmacy Admission Review - Admission Clinical Review (Last Updated 06/15/19 @ 14:54 by Aleena Grimes MD) Hospice care patient (Acute) Headache due to intracranial disease (Acute) oxcarbazepine [From Trileptal] Allergy (Unverified 04/02/19 10:22) Skin Rash sulfamethoxazole [From Bactrim] Allergy (Unverified 04/02/19 10:22) Skin Rash trimethoprim [From Bactrim] Allergy (Unverified 04/02/19 10:22) Skin Rash sertraline [From Zoloft] Adverse Reaction (Verified 04/02/19 10:22) increased anxiety - Renal Dosing Medications needing adjustments: N/A (no labs) - Anticoagulation DVT Prohphylaxis: N/A Therapeutic Anticoagulation: N/A - Opiate Usage Evaluate Pain Scale/Pains Meds: Reviewed Scheduled Bowel Reg ordered if on Opiates?: Yes (morgan and prn meds ordered) - Relevant Labs Electrolytes, C-Reactive P, ESR: N/A (no labs) - DM Control Insulin Dosing: N/A (no labs) - Heart Failure/MO EF%, SON's, B-Blockers, Diuretics: N/A - BP Control If elevated: N/A (no VS yet this morning.) - Qtc Review If Elevated: N/A - IV to PO Switch IV Medications: Reviewed - Home Meds Home Med List reviewed: Reviewed (quetiapine may enhance the ulcerogenic effect of potassium; avoid combination and/or use alternative dosage form. Multiple DATA INTEGRATION ANALYST depressants: fentanyl, clonazepam, levetiracetam, quetiapine, trazodone.) Relevent Home Meds Not ordered & why?: cyanocobalamin, docusate, magnesium oxide, potassium, quetiapine - Current meds Current Medication Order Review: Intervened (fixed pantoprazole timing, discontinued patch removal order (can document patch removal on scheduled fentanyl order).)
--- NOTE | 2019-06-16 09:52 | W.NUTRFU ---
Date of service: 06/16/19 Time of Service: 09:52 Nutritional Follow up NOTE: 49 year old female with end stage glioblastoma of frontal lobe. Here for dying care, on hospice. Currently on regular meal plan. Will be available prn. Time Spent in Nutritional Counseling and Treatment: 0 time spent face to face
--- NOTE | 2019-06-16 10:03 | W.PM.PROGNOT ---
Date of Service Date of service: 06/16/19 Time of Service: 08:19 Assessment and Plan Assessment and plan (1) Anxiety associated with cancer diagnosis: Status: Chronic Assessment and plan: Will schedule her lorazepam. Reviewed her home medication list; on the two days prior to admission, she had taken a total of 6 mg each; this may have contributed to her confusion and uncoordination. Talking to is project manager has helped. report life-long issue for her. Likes to have information given to her, plans ahead. Listed who will see her as provider this and Wednesday. She does better with more information and more detail. (2) Glioblastoma multiforme of frontal lobe: Status: Chronic Assessment and plan: Headache pain and lack of coordination better today. Continue on dexamethasone. (3) Ataxia: Status: Chronic Assessment and plan: I have nto seen her up since my home visit 2 days ago. She does have commode and BR privileges. Encouraged her to get up WITH HELP if she wishes. (4) Headache due to intracranial disease: Status: Chronic Assessment and plan: Was at a 10/10 prior to admission. Now at a 3 after crying, 1-2 when calm. Continue fentanyl patch at 50 mcg. Subjective Subjective Patient reports: no new complaints, feels better, still having pain and pain is less Interval history since last seen: Emilee is more alert today. She is more anxious. She ate her breakfast well, using silverware without difficulty. (She has been eating with her hands for a few days due to lack of coordination). She slept until about 4:30. Her headache control is improved with increase in fentanyl patch. Her Van was with her during my visit. We discussed her wishes: she would like to be cremated and have her ashes spread around [facility] and on land owned by their friend Lazaro. She does NOT want to be an organ donor. Her is considering transporting her body himself to the [facility]. Exam Const General: no acute distress, anxious and ill appearing Nutritional Appearance: overweight Orientation: awake, oriented to person and oriented to place [facility] Head: atraumatic, scalp lesion (scar right frontal region, hair thinner over that area of skull) and other (bruising under left eye) Ears: external ears normal General nose exam: external nose normal Face and sinus: scar (from cleft lip repair) Mouth: muffled voice Eyes Conjunctivae: conjunctivae normal Sclera: sclerae normal Neck Neck: no lymphadenopathy and no JVD Chest Chest: normal inspection of the chest Resp Effort & Inspection: normal respiratory effort and able to speak in complete sentences Auscultation: clear to auscultation bilaterally Cardio Jugular venous pressure: no JVD Rate: regular rate Rhythm: regular rhythm Heart Sounds: S1 normal and S2 normal GI Inspection: obesity Palpation: soft Auscultation: normal bowel sounds Skin General skin exam: dry skin Trauma: no lacerations or abrasions Hair: normal Nails: normal Neuro General: patient awake, gait abnormal and patient confused Cognition: abnormal cognition (sometimes oriented, sometimes not; delirium) Speech: abnormal speech (though close to normal on admission; yesterday garbled, slurred, hallucinat) Gait: festinating, shuffling and gait assisted Method: walker Motor: strength abnormal Extrem General: capillary refill normal and no pedal edema Psych Appearance: grossly normal Speech and Movement: delayed speech, restless (moving her toes and feet constantly) and slowed movement Mood: anxious mood and dysthymic mood Affect: sad and blunted Attitude: cooperative Thought Process: impoverished Insight: limited Judgment: limited Objective Objective Clinical Data: Vital Signs Temperature 98.4 F 06/15/19 13:17 Temperature Source Tympanic 06/15/19 13:17 Pulse 86 06/15/19 13:17 Pulse Rhythm Regular 06/15/19 18:36 Respiratory Rate 16 06/15/19 13:17 Respiratory Effort Non-Labored 06/16/19 03:45 Respiratory Depth Normal 06/16/19 03:45 Respiratory Pattern Normal 06/16/19 03:45 Blood Pressure 178/113 H 06/15/19 13:17 Pulse Oximetry 95 06/15/19 13:17 Oxygen Delivery Method Room Air 06/15/19 13:17 Oxygen Flow Rate 0 06/15/19 13:17 Pain Level 3 06/16/19 08:22 Comment 06/15/19 13:30 Intake & Output 06/15/19 06/15/19 06/16/19 11:59 23:59 11:59 Intake Total 200 / 200 Balance 200 / 200 Intake: Oral 200 / 200 Other: Urine Color Yellow Urine Appearance Clear Urine Odor Normal Comment Refused Voiding Methods Toilet Toilet Laboratory Results COVID-19 PCR Cancelled 06/15/19 16:22 Nasopharyn COVID-19 PCR Cancelled 06/15/19 16:22 Ref Test Perform Site Cancelled 06/15/19 16:22
[2019-06-16] MEDS: LORazepam 1 MG TAB PO ×5 (11:57→21:44)
--- NOTE | 2019-06-16 14:50 | CHAPLAIN ---
I visited with Emilee when she first arrived yesterday (06/17). She told me about the decision to be admitted. It has always been her plan to come to the hospital to as she is worried about pain control and putting the responsibility of medication administration on her . Emilee said she had a rough ride in the ambulance and was hoping to rest. She expected her in soon. I checked in again before I left at 5 p.m. Emilee was having trouble coordinating her efforts to cut her food and eat it. She gave me permission to let her friend Wesley Rg, know that she is here and that I had visited with her. Wesley has know Van since he was a kid, and Van identified Wesley as a second mom. I was called back about an hour later at Emilee's request. Her , Van, was there when I arrived. Emilee was focused on making sure she was no longer an organ donor. I suggested she let Dr. Grimes know that at when Dr. Grimes met with Emilee and Van this morning at 8:30. Last evening, Emilee seemed more relaxed as we talked about their camp on [facility] and time spent there with their two kids. Van reminisced some. Emilee appeared to be sleeping, but then would speak up and contribute to the conversation at times. Today, Emilee has been again worried about some things she can't really control. She asked me about calling a friend she knows who is struggling to be in contact with his grandkids. She said her kids have decided if they will visit or not. She and Van are leaving the decision up to them. Emilee talked about where she wanted her ashes to be spread and said she did not want her face to be covered with the quilt, meaning the quilt used by the home when they take bodies from the hospital. (A note from Dr. Grimes today said that Van is considering transporting Emilee's body himself.) Emilee is worried about her daughter and asked one of the nurses who knows Torvasile, to check in on Tory. Emilee is aware that she is worrying about things she can't control, and says that. She cries frequently, which gives her headaches. She likes to know exactly what medicines she is begin given, and when the hospice medical staff will be seeing her. Dr. Grimes wrote the schedule for her visits, and PADDY Vogt, and Dr. Mccarty, on the white board. For many weeks now, Emilee has been journaling and had has family members read her journal as a way of communicating what she is thinking and feeling.
--- NOTE | 2019-06-16 16:45 | PDOC.CMPRO ---
- If Service Date Differs Date of service: 06/16/19 Time of Service: 16:45 Care Management Progress Note S/O: CM met with Emilee at the bedside she is alert her Oniel is present. Emilee is tearful with CM she states she has had wonderful support from her daughter and her . CM reviewed plan with Emilee and her spouse. Torie from hospice will be here over the weekend to assess and manage symptoms. Anticipate she will return home with her family and resumption of hospice on Wednesday depending on how she is doing. CM will continue to provide support to patient and assess for discharge needs. A:Maricarmen is a 49 year old female admitted by hospice for management of symptoms related to Glioblastoma P: Emilee will be discharged home anticipate next week, CM will work collaboratively with Hospice [employer] and providers to assist in coordination of care and services. Spouse will provide transport when she is ready for discharged.
[2019-06-16] MEDS: traZODone 100 MG TAB PO (19:53)
[2019-06-16] MEDS: Normal Saline Flush 10 ML SYR IVP (19:53)
[2019-06-17] MEDS: Dexamethasone 4 MG TAB PO ×4 (00:05→17:40)
[2019-06-17] MEDS: LORazepam 1 MG TAB PO ×6 (01:43→19:09)
[2019-06-17] MEDS: Acetaminophen 325 MG TAB PO ×3 (01:43→11:59)
[2019-06-17] MEDS: Calcium Carbonate *TUMS* 500 MG CHEW PO (06:49)
[2019-06-17] MEDS: levETIRAcetam 500 MG TAB 1500 MG PO ×2 (07:59→17:39)
[2019-06-17] MEDS: clonazePAM 0.5 MG TAB 0.25 MG PO ×2 (07:59→17:39)
[2019-06-17] MEDS: Pantoprazole 40 MG TABCR PO ×2 (08:00→17:40)
[2019-06-17] MEDS: Normal Saline Flush 10 ML SYR IVP (08:01)
--- NOTE | 2019-06-17 08:59 | CMPROGNOTE_ITS ---
- If Service Date Differs Date of service: 06/17/19 Time of Service: 08:59 Care Management Progress Note S/O: Emilee was sitting up in bed when CM met with her. She was pleasant but a bit vague in her responses. She stated that she thought she had been asleep but wasn't sure. She had received medication per nursing shortly before CM arrived but was not sure if she had or not. Emilee requested to rest as she had been visiting with her all day. Torie Cantu APRN, visited with patient and adjusted some of her medications to increase comfort. A:Maricarmen is a 49 year old female admitted by hospice for management of symptoms related to Glioblastoma P: Emilee will likely be discharged home next week, although it is possible she will remain at [facility] for end of life care if her condition does not stabilize. CM will work collaboratively with [facility] and providers to assist in coord ination of care and services. Spouse will provide transport when she is ready for discharged. CM will continue to offer support to Emilee and her .
--- NOTE | 2019-06-17 16:27 | W.PM.PROGNOT ---
Date of Service Date of service: 06/17/19 Time of Service: 11:15 Assessment and Plan Assessment and plan (1) Glioblastoma multiforme of frontal lobe: Status: Chronic Assessment and plan: On hospice for this diagnosis. Her pain is well controlled today. She had some difficulty with pain control overnight, her pain is in her head due to increased intracranial pressure. Plan to schedule tylenol, increase to 1000 mg q8h. Add morphine oral solution PRN for breakthrough pain. (2) Anxiety associated with cancer diagnosis: Status: Chronic Assessment and plan: She has been on ativan 1 mg scheduled QID and has required 3 additional doses over the last 24 hours. Increase scheduled ativan to q4h. 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 Less confusion now that she is not on oxycodone. Continue fentanyl patch. (4) Ataxia: Status: Chronic Assessment and plan: More steady today with walker. (5) Hospice care patient: Status: Acute Assessment and plan: Remains on symptom management today. Estefani is clear that she does NOT want to be an organ donor even though it says that she is on her license. Today, she states that she does not want the pathology laboratory director to place the quilt over her face after she passes. Subjective Subjective Interval history since last seen: Estefani reports that she thought she slept well last night. She slept from 8pm to 3am. Nursing was concerned that her pain was not well controlled last night. She remains on Fentanyl patch 50 mcg/hr, she was taking APAP PRN for TOBAR. Her head pain is well controlled today, but the pain increases when she cries. She has been emotional today. She is eating and drinking well and tolerating her diet, she is craving geoffrey. She denies abdominal pain, nausea or vomiting. Her bowels are moving regularly. She has been getting out of bed to void frequently. She does not want a saeed catheter. She denies any SOB, coughing, wheezing, CP or edema. Her , Van is present. He relayed that Estefani has been taking about getting on a [employer] train and leaving. She became weepy when he was talking about this and said, I can't go anywhere without you. Van reports that Estefani had a good day yesterday and he thinks she is doing a little worse today. Exam Narrative Exam Narrative: General: Young female, appears stated age, hair growing back in. Intermittently weepy, keeps eyes closed during most of the visit. Answers questions appropriately, does not seem confused. HEENT: Scar above right gnosticist with thinning hair over the area. Mucous membranes moist. Neck: supple. Respiratory: respirations even and unlabored, lung sounds clear throughout. Cardiovascular: heart has regular rate and rhythm, no murmur appreciated. GI: +BS, soft, nontender on palpation, nondistended. Extremities: No clubbing, cyanosis or edema. Right foot with small area of ecchymosis at the base of her 4th and 5th toe. Objective Objective Clinical Data: Vital Signs Temperature 36.9 C 06/15/19 13:17 Temperature Source Tympanic 06/15/19 13:17 Pulse 86 06/15/19 13:17 Pulse Rhythm Regular 06/15/19 18:36 Respiratory Rate 16 06/15/19 13:17 Respiratory Effort Non-Labored 06/17/19 08:00 Respiratory Depth Normal 06/17/19 08:00 Respiratory Pattern Normal 06/17/19 08:00 Blood Pressure 178/113 H 06/15/19 13:17 Pulse Oximetry 95 06/15/19 13:17 Oxygen Delivery Method Room Air 06/15/19 13:17 Oxygen Flow Rate 0 06/15/19 13:17 Pain Level 4 06/17/19 11:59 Comment 06/15/19 13:30 Intake & Output 06/16/19 06/17/19 06/17/19 23:59 11:59 23:59 Intake Total 390 / 390 490 / 900 410 / 900 Balance 390 / 390 490 / 900 410 / 900 Intake: IV Oral 390 / 390 490 / 890 400 / 890 Other: Urine Color Yellow Yellow Pale Urine Appearance Clear Clear Clear Urine Odor None Stool Size Large Stool Characteristics Brown Voiding Methods Toilet Toilet Toilet Laboratory Results COVID-19 PCR Cancelled 06/15/19 16:22 Nasopharyn COVID-19 PCR Cancelled 06/15/19 16:22 Ref Test Perform Site Cancelled 06/15/19 16:22
[2019-06-17] MEDS: Acetaminophen 500 MG TAB 1000 MG PO (17:39)
[2019-06-17] MEDS: Senna TAB PO (17:41)
[2019-06-17] MEDS: traZODone 100 MG TAB PO (19:09)
--- NOTE | 2019-06-18 00:06 | NUR.NOTE ---
Nursing Note: Beginning of the shift, Pt was so much depressed, crying. Lorazepam PRN given together with the scheduled one. Assisted on her supper and ate well. Pt is alert and oriented but some episodes of forgetful.The telegraphic typewriter operator chief stayed with pt for little sharing about words of God. Then she requested to have saeed few minutes after insertion, pt verbalized of having pain and forgets that she has catheter, asked the telegraphic typewriter operator chief to bring her to toilet and was telling the staff to do in & out cath. Education and reassurance provided and cold compress applied to lower abdomen and wears pull ups to ease the pain and it helped. visited . When he left, the telegraphic typewriter operator chief stayed with pt and able to sleep soundly until this time. Midnight meds not given yet. Will continue to monitor.
[2019-06-18] MEDS: LORazepam 1 MG TAB PO ×8 (00:36→23:50)
[2019-06-18] MEDS: Dexamethasone 4 MG TAB PO ×5 (00:36→23:50)
[2019-06-18] MEDS: Pantoprazole 40 MG TABCR PO ×2 (08:25→17:26)
[2019-06-18] MEDS: clonazePAM 0.5 MG TAB 0.25 MG PO ×2 (08:25→17:26)
[2019-06-18] MEDS: levETIRAcetam 500 MG TAB 1500 MG PO ×2 (08:26→17:26)
[2019-06-18] MEDS: Acetaminophen 500 MG TAB 1000 MG PO ×2 (09:22→17:26)
--- NOTE | 2019-06-18 13:09 | PGE_ITS ---
Date of Service Date of service: 06/18/19 Time of Service: 11:00 Assessment and Plan Assessment and plan (1) Glioblastoma multiforme of frontal lobe: Status: Chronic Assessment and plan: On hospice for this diagnosis. Her pain fairly well controlled today with the Fentanyl patch at 50 mcg/hr and scheduled tylenol increased to 1000 mg q8h yesterday. Plan try PRN MS solution for continued/breakthrough head pain. Her nurse was bringing a dose at the end of the visit. (2) Anxiety associated with cancer diagnosis: Status: Chronic Assessment and plan: Ativan was increased to q4h yesterday, her anxiety is under better control. She continues to be intermittently weepy. Consider increasing evening dose if indicated. 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 Continue fentanyl patch. PRN morphine oral solution for breakthrough head pain. (4) Ataxia: Status: Chronic Assessment and plan: Steady today with walker. (5) Hospice care patient: Status: Acute Assessment and plan: Remains on symptom management today. Estefani is clear that she does NOT want to be an organ donor even though it says that she is on her license. Today, she states that she does not want the director equipment to place the quilt over her face after she passes. Estefani explained that she was trying to work some things out last evening. She did not have a good evening. She seems more peaceful and calm today. Two days ago she told Van that she needed to get on a [employer] train and go, Yesterday she was talking about getting on an airplane. Continue to maintain her comfort. The plan is to remain in the hospital at this point. Her , Van and daughter Marianna have been visiting regularly. Subjective Subjective Interval history since last seen: Estefani's , Van is present. They report that she had a bad night last night. She was getting out of bed frequently to void, nursing placed a saeed to see if she would be more comfortable. She was uncomfortable and the saeed was discontinued this morning. She feels better today. She had a shower which made her feel good. She continues to have a headache behind her eyes, she rates it 3/10. She had not tried the liquid morphine at the time of her visit. She feels that her anxiety is under better control with more frequent ativan dosing, however, she still feels weepy at times. She is eating well, she continues to crave geoffrey. She is drinking fluids. She denies abdominal pain, nausea, vomiting, her bowels are moving. No shortness of breath, coughing, wheezing, chest pain or edema. She ambulated to the bathroom with a walker during the visit. We discussed that her family loves her and will miss her very much, but they will be OK. Van reassured her that he will take care of everything. Exam Narrative Exam Narrative: General: Young female, appears stated age, hair growing back in. Intermittently weepy, keeps eyes closed during most of the visit. Answers questions appropriately, does not seem confused. Appears more comfortable, calm and relaxed today. HEENT: Scar above right mormon with thinning hair over the area. Mucous membranes moist. Neck: supple. Respiratory: respirations even and unlabored, lung sounds clear throughout. Cardiovascular: heart has regular rate and rhythm, no murmur appreciated. GI: +BS, soft, nontender on palpation, nondistended. Extremities: No clubbing, cyanosis or edema. Right foot with small area of ecchymosis at the base of her 4th and 5th toe. Objective Objective Clinical Data: Vital Signs Temperature 36.9 C 06/15/19 13:17 Temperature Source Tympanic 06/15/19 13:17 Pulse 86 06/15/19 13:17 Pulse Rhythm Regular 06/15/19 18:36 Respiratory Rate 16 06/15/19 13:17 Respiratory Effort Non-Labored 06/18/19 09:01 Respiratory Depth Normal 06/18/19 09:01 Respiratory Pattern Normal 06/18/19 09:01 Blood Pressure 178/113 H 06/15/19 13:17 Pulse Oximetry 95 06/15/19 13:17 Oxygen Delivery Method Room Air 06/15/19 13:17 Oxygen Flow Rate 0 06/15/19 13:17 Pain Level 3 06/18/19 12:23 Comment 06/15/19 13:30 Intake & Output 06/17/19 06/18/19 06/18/19 23:59 11:59 23:59 Intake Total 660 / 1150 480 / 480 Output Total 650 / 650 775 / 775 Balance 10 -295 / -295 Intake: IV Oral 640 / 1130 480 / 480 Output: Urine 650 / 650 775 / 775 Other: Urine Color Yellow Yellow Urine Appearance Clear Clear Voiding Methods Toilet Laboratory Results COVID-19 PCR Cancelled 06/15/19 16:22 Becky COVID-19 PCR Cancelled 06/15/19 16:22 Ref Test Perform Site Cancelled 06/15/19 16:22
[2019-06-18] MEDS: Calcium Carbonate *TUMS* 500 MG CHEW PO (14:12)
[2019-06-18] MEDS: fentaNYL 50 MCG PATCH TD (15:30)
[2019-06-18] MEDS: Patch Removal 1 EACH TD (15:56)
[2019-06-18] MEDS: Senna TAB PO (17:26)
[2019-06-18] MEDS: traZODone 100 MG TAB PO (19:14)
[2019-06-19] MEDS: Acetaminophen 500 MG TAB 1000 MG PO ×3 (02:59→17:40)
[2019-06-19] MEDS: LORazepam 1 MG TAB PO ×5 (03:00→19:03)
[2019-06-19] MEDS: Dexamethasone 4 MG TAB PO ×3 (06:51→17:40)
[2019-06-19] MEDS: levETIRAcetam 500 MG TAB 1500 MG PO ×2 (08:13→17:40)
[2019-06-19] MEDS: clonazePAM 0.5 MG TAB 0.25 MG PO ×2 (08:14→17:39)
[2019-06-19] MEDS: Pantoprazole 40 MG TABCR PO ×2 (08:14→17:41)
--- NOTE | 2019-06-19 12:36 | PDOC.CMPRO ---
- If Service Date Differs Date of service: 06/19/19 Time of Service: 12:36 Care Management Progress Note S/O: Maricarmen was resting when CM attempted to meet with her. LIZET updated JOSE Sheriff from Hospice regarding the plan of care for Maricarmen. LIZET was later called to the room by Maricarmen, who was eating her lunch when CM met with her. Maricarmen was tearful, and asked CM to contact her to find out when he would be visiting today. LIZET called Van, who stated that he was here this morning, and would be back this afternoon at 3:30pm. LIZET relayed this information to Maricarmen. Per report, Dr. Grimes will visit with Maricarmen tomorrow to reevaluate her plan of care. LIZET will continue to follow. A:Maricarmen is a 49 year old female admitted by hospice for management of symptoms related to Glioblastoma P: Emilee will likely be discharged home next week, although it is possible she will remain at [facility] for end of life care if her condition does not stabilize. LIZET will work collaboratively with [facility] and providers to assist in coordination of care and services. Spouse will provide transport when she is ready for discharged. LIZET will continue to offer support to Emilee and her .
--- NOTE | 2019-06-19 14:47 | CHAPLAIN ---
I checked in on Emilee a couple of times this morning and she was sleeping. This afternoon, after lunch she was awake and giving the dietary staff her meal order when I stopped in. During our conversation, Emilee kept her eyes closed. She was less tearful than on Wednesday, but her nurse on Wednesday, Petty Fitzpatrick RN, said she had cried a great deal and again was expressing concern about things has little control over. Emilee said she met with Dr. Mccarty this morning and she wasn't able to tell when people . I believe Emilee meant, when she would . Emilee will be meeting with Dr. Grimes at 7:30 tomorrow morning, so I suggested she might talk with, but that from what I know, it's always a difficult thing to predict. She also talked about Van saying he would take care of the kids, and this is important to her.
--- NOTE | 2019-06-19 17:39 | PGE_ITS ---
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 She has not had any noted seizures. Glioblastoma with midline intracranial shift?will decrease the DEXA Methasone to 4 mg 3 times daily. She is presently on it every 6 hours. Although she states that she has a headache, she does not move or ask like her headache is a major problem. Continue with the fentanyl patch Continue with the scheduled clonazepam. Her anxiety is still present but does not seem overwhelming. What was very interesting about her interaction is that at the very end as I was leaving Maricarmen who I never met before my life asked me how my waterskiing was going. She had read about my waterskiing years ago and wanted to know if I still was waterskiing. We then talked about waterskiing in general and the fact that less than a week ago I did water ski. She laughed and smiled and was very much engaged in that conversation. She surprised me. Tomorrow Dr. Coffman will be returning. She will follow-up with Maricarmen. I did ask the nurse to let her know that I had been there. This document was created by [employer] software. Content was screened for misspellings, grammatical mistakes, etc. I apologize for any problems, but please contact me for further clarification if needed. Subjective Subjective Interval history since last seen: I am seeing Maricarmen for the first time. She is a 49-year-old woman with a glioblastoma and midline shift of the brain. She has a seizure disorder. She was brought from home to the hospital to help with anxiety. Per patient she continues to have a headache. She has not had any seizures. She does feel like her headache has improved. Overall she feels her anxiety is still present. She is very clear she wanted to know if I was coming back when her was coming, she wanted the nurse to be sure to call up her and say that I had been there and that I was now gone. She had very specific instructions about comings and vincent of people. I did read the white board to her as far as when her and Marianna were going to come and go. Exam Narrative Exam Narrative: She is lying in bed. She acknowledges my presence but does not open her eyes. She states that she feels that she is doing better but not great. The headache is the major problem. She also states that she has to go to the bathroom. I did have nursing come in and toilet her. I then returned after this was done and again met with her. Her heart was tachycardic her lungs some air movement not a lot. She did look a little cushingoid from steroids. Objective Objective Clinical Data: Vital Signs Temperature 98.4 F 06/15/19 13:17 Temperature Source Tympanic 06/15/19 13:17 Pulse 86 06/15/19 13:17 Pulse Rhythm Regular 06/15/19 18:36 Respiratory Rate 16 06/15/19 13:17 Respiratory Effort Non-Labored 06/19/19 17:15 Respiratory Depth Normal 06/19/19 17:15 Respiratory Pattern Normal 06/19/19 17:15 Blood Pressure 178/113 H 06/15/19 13:17 Pulse Oximetry 95 06/15/19 13:17 Oxygen Delivery Method Room Air 06/15/19 13:17 Oxygen Flow Rate 0 06/15/19 13:17 Pain Level 0 06/19/19 10:45 Comment 06/15/19 13:30 Intake & Output 06/18/19 06/19/19 06/19/19 23:59 11:59 23:59 Intake Total 250 / 730 370 / 550 180 / 550 Balance 250 / -45 370 / 550 180 / 550 Intake: IV 10 Oral 240 / 720 370 / 550 180 / 550 Other: Urine Color Yellow Yellow Urine Appearance Clear Clear Comment x 3 since 1500 hrs. Pt urinates in toilet, sounded like a fair amount to nursing Voiding Methods Toilet Toilet Toilet Laboratory Results COVID-19 PCR Cancelled 06/15/19 16:22 Nasopharyn COVID-19 PCR Cancelled 06/15/19 16:22 Ref Test Perform Site Cancelled 06/15/19 16:22
[2019-06-19] MEDS: Senna TAB PO (17:40)
[2019-06-19] MEDS: Calcium Carbonate *TUMS* 500 MG CHEW PO (19:03)
[2019-06-19] MEDS: traZODone 100 MG TAB PO (19:03)
[2019-06-20] MEDS: Acetaminophen 500 MG TAB 1000 MG PO ×3 (02:35→17:46)
[2019-06-20] MEDS: LORazepam 1 MG TAB PO ×7 (02:36→23:57)
[2019-06-20] MEDS: Calcium Carbonate *TUMS* 500 MG CHEW PO ×2 (05:59→19:22)
[2019-06-20] MEDS: clonazePAM 0.5 MG TAB 0.25 MG PO ×2 (07:21→17:45)
[2019-06-20] MEDS: levETIRAcetam 500 MG TAB 1500 MG PO ×2 (07:21→17:46)
[2019-06-20] MEDS: Pantoprazole 40 MG TABCR PO ×2 (07:21→17:47)
[2019-06-20] MEDS: Dexamethasone 4 MG TAB PO ×3 (07:34→19:23)
--- NOTE | 2019-06-20 14:10 | W.PM.PROGNOT ---
Date of Service Date of service: 06/20/19 Time of Service: 12:00 Assessment and Plan Assessment and plan (1) Hospice care patient: Status: Chronic Assessment and plan: Continues on symptom management. Considering discharge home later this week, perhaps as early as tomorrow. Will continue to see her daily for now. 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 Watch for side effects. Fentanyl patch 50 mcg holding her for now. 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 Life expectancy was thought to be days only at admission, but she has improved. Now measured in weeks, though sooner would not be surprising. Planning on discharge home in next 24-48 hrs. Wants to be home by Mother's Day no matter what (5 days from now). (4) Anxiety associated with cancer diagnosis: Status: Chronic Assessment and plan: Has tried lorazepam and clonazepam. Adding depakote for mood stabilization now. Some of this is from her understanding of her shortened life and some of it is due to where the tumor is. (5) Steroid dependent: Status: Acute Assessment and plan: Her neuro-oncologist, Dr Engle, advised we can go as high as 24 mg per day, if she tolerates it. This is the most reliable treatment of cerebral edema in end-stage glio. (6) Emotional lability: Status: Chronic Assessment and plan: Will try depakote for mood stabilization. Subjective Subjective Patient reports: feels better, pain is less and voiding w/o difficulty Interval history since last seen: Emilee is much better than she was at admission. Her biggest problem now is her emotional lability. Her tumor is primarily right-sided, in an area where people often are very depressed and anxious when they have lesions there. I discussed her treatment plan with Dr Mccarty this am. She suggested a mood stabilizing drug, such as depakote. I think it's worth a try. I discussed this possibility with Emilee. She was open to it. She and her , Van, who accompanied her, are open to her going home. It's unclear when that timing would be. I told them I think she needs at least 24-48 hrs to see if the depakote helps. Her headaches are well-controlled on the fentanyl patch and the dexamethasone. There was concern that the steroid was making her anxious, so Bibiana did back off by one pill per day. So far,no worsening in her TOBAR. Exam Const General: no acute distress, anxious and ill appearing Nutritional Appearance: overweight Orientation: awake, oriented to person and oriented to place [facility] Head: atraumatic, scalp lesion (scar right frontal region, hair thinner over that area of skull) and other (bruising under left eye) Ears: external ears normal General nose exam: external nose normal Face and sinus: scar (from cleft lip repair) Mouth: muffled voice Eyes Eyelids: other (keeping them open much more today than she did 3 days ago) Conjunctivae: conjunctivae normal Sclera: sclerae normal Neck Neck: no lymphadenopathy and no JVD Chest Chest: normal inspection of the chest Resp Effort & Inspection: normal respiratory effort and able to speak in complete sentences Auscultation: clear to auscultation bilaterally Cardio Jugular venous pressure: no JVD Rate: regular rate Rhythm: regular rhythm Heart Sounds: S1 normal and S2 normal GI Inspection: obesity Palpation: soft Auscultation: normal bowel sounds Skin General skin exam: dry skin and other (hair on her jaw/chin has grown in quite thickly; hirsuite from steroids? ) Trauma: no lacerations or abrasions Hair: normal Nails: normal Neuro General: patient awake, patient oriented x3, gait abnormal and patient confused Cognition: normal cognition (not 100% normal, but close; able to make appropriate comments and follow ) Speech: speech normal Gait: festinating, shuffling, gait assisted Method: walker and other ( Van is able to get her up and to the BR without assistance from RN) Motor: strength abnormal Extrem General: capillary refill normal and no pedal edema Psych Appearance: grossly normal Speech and Movement: delayed speech, restless (moving her toes and feet constantly) and slowed movement Mood: anxious mood and dysthymic mood Affect: sad and blunted Attitude: cooperative Thought Process: impoverished Insight: limited Judgment: limited Objective Objective Clinical Data: Vital Signs Temperature 98.4 F 06/15/19 13:17 Temperature Source Tympanic 06/15/19 13:17 Pulse 86 06/15/19 13:17 Pulse Rhythm Regular 06/15/19 18:36 Respiratory Rate 16 06/15/19 13:17 Respiratory Effort Non-Labored 06/20/19 07:30 Respiratory Depth Normal 06/20/19 07:30 Respiratory Pattern Normal 06/20/19 07:30 Blood Pressure 178/113 H 06/15/19 13:17 Pulse Oximetry 95 06/15/19 13:17 Oxygen Delivery Method Room Air 06/15/19 13:17 Oxygen Flow Rate 0 06/15/19 13:17 Pain Level 0 06/19/19 10:45 Comment 06/15/19 13:30 Intake & Output 06/19/19 06/20/19 06/20/19 23:59 11:59 23:59 Intake Total 190 / 560 240 / 240 Balance 190 / 560 240 / 240 Intake: IV Oral 180 / 550 240 / 240 Other: Urine Color Yellow Urine Appearance Clear Clear Stool Size Large Stool Characteristics Formed Voiding Methods Toilet Toilet Laboratory Results COVID-19 PCR Cancelled 06/15/19 16:22 Nasopharyn COVID-19 PCR Cancelled 06/15/19 16:22 Ref Test Perform Site Cancelled 06/15/19 16:22
[2019-06-20] MEDS: Divalproex Sodium 500 MG TAB.ER.24H PO (15:03)
--- NOTE | 2019-06-20 15:14 | CHAPLAIN ---
I stopped in after Emilee returned from the shower. Her daughter Lisa was visiting, so I didn't stay long. Earlier today I met Emilee's , Van, in the hallway. He described this time as a roller coaster and said it's been difficult to know how best to support Emilee because she changes here mind frequently about what she wants. And this has been going on for 18 months, he said. I asked if he contacts a friend, or what the does for himself while Emilee is here, if he has any free time. He said he mostly works. The current plans if for Emilee to do home, possibly as early as tomorrow. Van said they had a good meeting with Dr. Grimes this afternoon and he feels like they have a good plan in place. A new medicine is being tried for anxiety, he said.
--- NOTE | 2019-06-20 15:52 | PDOC.CMPRO ---
- If Service Date Differs Date of service: 06/20/19 Time of Service: 15:52 Care Management Progress Note S/O: Maricarmen was resting when CM attempted to visit. Dr. Grimes visited her today and added a medication for migraines and mood stabilization. Per MD report, she will likely return home later this week. Hospice will continue to visit with her daily. MD note states that she has requested to be home by Mother's Day. CM will continue to follow. A:Maricarmen is a 49 year old female admitted by hospice for management of symptoms related to Glioblastoma P: Emilee will likely be discharged home this week, although it is possible she will remain at [facility] for end of life care if her condition does not stabilize. CM will work collaboratively with [facility] and providers to assist in coordination of care and services. Spouse will provide transport when she is ready for discharged. CM will continue to offer support to Emilee and her .
[2019-06-20] MEDS: Senna TAB PO (17:47)
[2019-06-20] MEDS: traZODone 100 MG TAB PO (19:23)
[2019-06-21] MEDS: Acetaminophen 500 MG TAB 1000 MG PO ×3 (01:27→18:03)
[2019-06-21] MEDS: Calcium Carbonate *TUMS* 500 MG CHEW PO (02:47)
[2019-06-21] MEDS: LORazepam 1 MG TAB PO ×4 (04:40→15:55)
[2019-06-21] MEDS: clonazePAM 0.5 MG TAB 0.25 MG PO ×2 (07:29→18:02)
[2019-06-21] MEDS: levETIRAcetam 500 MG TAB 1500 MG PO ×2 (07:29→18:02)
[2019-06-21] MEDS: Dexamethasone 4 MG TAB PO ×2 (07:30→14:13)
[2019-06-21] MEDS: Pantoprazole 40 MG TABCR PO ×2 (07:30→18:02)
[2019-06-21] MEDS: Divalproex Sodium 500 MG TAB.ER.24H PO (09:10)
--- NOTE | 2019-06-21 13:07 | PGE_ITS ---
Date of Service Date of service: 06/21/19 Time of Service: 12:09 Assessment and Plan Assessment and plan (1) Emotional lability: Status: Chronic Assessment and plan: Improved with addition of depakote. More confused with decreased dose of dexamethasone. Will take risk of returning to 16 mg daily dose to see if thinking clears. Continue mood stabilizer. Plan is for trial of care at home. (2) Steroid dependent: Status: Acute Assessment and plan: On steroids for cerebral edema associated with her glioblastoma. Will continue. Watch for anxiety. (3) Glioblastoma multiforme of frontal lobe: Status: Chronic Assessment and plan: Terminal diagnosis. Headaches and confusion and emotional lability are her most bothersome symptoms. (4) Anxiety associated with cancer diagnosis: Status: Chronic Assessment and plan: COntinues on scheduled clonazepam and prn lorazepam. Will increase dose of cloazepam to 5 mg bid. (5) Hospice care patient: Status: Chronic Assessment and plan: Discussion of going home tomorrow with hospice nurse visit scheduled for same day. Will reassess in am. (6) Cerebral edema: Status: Acute Assessment and plan: From her tumor; cause of her TOBAR and confusion. (7) Leptomeningeal metastases: Status: Chronic Assessment and plan: Poor prognostic sign. Subjective Subjective Patient reports: feels better and tolerating a regular diet Interval history since last seen: less tearful than yesterday tolerating new rx of depakote ER, though she has been sleeping more today than other days still confused more so since going down to 12 mg daily to of dexamethasone from 16 mg LESS ANXIOUS overall walked with Emilee to ; she was using walker she says she wants to go home; apprehensive about how it will work at home Exam Const General: no acute distress and ill appearing Nutritional Appearance: overweight Orientation: awake, oriented to person and oriented to place [facility] Head: atraumatic, scalp lesion (scar right frontal region, hair thinner over that area of skull) and other (bruising under left eye) Ears: external ears normal General nose exam: external nose normal Face and sinus: scar (from cleft lip repair) Eyes Eyelids: other (keeping them open much more today than she did 3 days ago) Conjunctivae: conjunctivae normal Sclera: sclerae normal Neck Neck: no lymphadenopathy and no JVD Chest Chest: normal inspection of the chest Resp Effort & Inspection: normal respiratory effort and able to speak in complete sentences Auscultation: clear to auscultation bilaterally Cardio Jugular venous pressure: no JVD Rate: regular rate Rhythm: regular rhythm Heart Sounds: S1 normal and S2 normal GI Inspection: obesity Palpation: soft Auscultation: normal bowel sounds Skin General skin exam: dry skin and other (hair on her jaw/chin has grown in quite thickly; hirsuite from steroids? ) Trauma: no lacerations or abrasions Hair: normal Nails: normal Neuro General: patient awake, patient oriented x3, gait abnormal and patient confused Cognition: normal cognition (not 100% normal, but close; able to make appropriate comments and follow ) Speech: speech normal Gait: festinating, shuffling, gait assisted Method: walker and other ( Van is able to get her up and to the BR without assistance from RN) Motor: strength abnormal Extrem General: capillary refill normal and no pedal edema Psych Appearance: grossly normal Speech and Movement: delayed speech, restless (moving her toes and feet cons tantly) and slowed movement Mood: dysthymic mood Affect: sad and blunted Attitude: cooperative Thought Process: impoverished Insight: limited Judgment: limited Objective Objective Clinical Data: Vital Signs Temperature 98.4 F 06/15/19 13:17 Temperature Source Tympanic 06/15/19 13:17 Pulse 86 06/15/19 13:17 Pulse Rhythm Regular 06/15/19 18:36 Respiratory Rate 16 06/15/19 13:17 Respiratory Effort Non-Labored 06/21/19 07:30 Respiratory Depth Normal 06/21/19 07:30 Respiratory Pattern Normal 06/21/19 07:30 Blood Pressure 178/113 H 06/15/19 13:17 Pulse Oximetry 95 06/15/19 13:17 Oxygen Delivery Method Room Air 06/15/19 13:17 Oxygen Flow Rate 0 06/15/19 13:17 Pain Level 5 06/21/19 01:27 Comment 06/15/19 13:30 Intake & Output 06/20/19 06/21/19 06/21/19 23:59 11:59 23:59 Intake Total 360 / 600 240 / 240 Balance 360 / 450 240 / 240 Intake: IV Oral 350 / 590 240 / 240 Other: Urine Color Yellow Yellow Urine Appearance Clear Clear Urine Odor None Stool Size Small Stool Characteristics Soft Voiding Methods Toilet Toilet Laboratory Results COVID-19 PCR Cancelled 06/15/19 16:22 Nasopharyn COVID-19 PCR Cancelled 06/15/19 16:22 Ref Test Perform Site Cancelled 06/15/19 16:22
[2019-06-21] MEDS: fentaNYL 50 MCG PATCH TD (15:55)
[2019-06-21] MEDS: Senna TAB PO (18:02)
[2019-06-21] MEDS: clonazePAM 1 MG TAB PO (20:07)
[2019-06-21] MEDS: traZODone 100 MG TAB PO (20:07)
[2019-06-21] MEDS: Dexamethasone 4 MG TAB 8 MG PO (20:07)
[2019-06-22] MEDS: Acetaminophen 500 MG TAB 1000 MG PO ×2 (02:17→09:17)
[2019-06-22] MEDS: levETIRAcetam 500 MG TAB 1500 MG PO (08:14)
[2019-06-22] MEDS: clonazePAM 1 MG TAB PO (08:14)
[2019-06-22] MEDS: Pantoprazole 40 MG TABCR PO (08:14)
[2019-06-22] MEDS: Dexamethasone 4 MG TAB 8 MG PO (08:14)
[2019-06-22] MEDS: Divalproex Sodium 500 MG TAB.ER.24H PO (08:14)
[2019-06-22] MEDS: LORazepam 1 MG TAB PO (09:17)
--- NOTE | 2019-06-22 13:40 | PDOC.CMDIS ---
- If Service Date Differs Date of service: 06/22/19 Time of Service: 13:40 LACE Index Scoring Tool - Questions: Length of Stay (in days): 4 - 6 Acuity (Admit via E.D.?): No Comorbidities: Any Tumor Care Management Discharge Reason for Hospitalization: Maricarmen was admitted to hospital under hospice for symptom management and transition to respite. Discharge Plan: Maricarmen was admitted to hospital under hospice for symptom management and transition to respite. She is being discharged home today with resumption of hospice services. Her spouse will be providing transportation home. Patient/Family Education Needs: Discharge education follow up plan of care and ongoing supports through Hospice. Services Needed at Discharge: Home Health Care Services
--- NOTE | 2019-06-22 14:43 | CHAPLAIN ---
After meeting with today, Emilee and her , Van, made plans to take Emilee home this afternoon and resume hospice care there. Emilee wished to be home for Mother's Day and possible go out to there camp on [facility]. Emilee was crying less today and yesterday and Dr. Grimes believes the improvement is from a change in medication. Emilee was fairly quiet while I was in the room. She was teary when I hugged her just before she left. Her hospice nurse was scheduled to visit her at home this afternoon, and Dr. Grimes is ship yard electrical person this weekend. She told Emilee and Van that Emilee could return to [facility] if she needs to if to have pain or medication managed. Emilee has said before that she wants to in the hospital where she is confident that her meds will be administered correctly. Van has help at home from their daughter, son and the son's girlfriend, and family friend Wesley Rg who is an [facility] nurse.
== END 2019-06-22 13:40 | disposition home health service (06) | DRG 54 ==
PROVIDERS: Admitting Provider Family Medicine; PCP Family Medicine; Visit Provider Family Medicine
DX: C71.1 Malignant neoplasm of frontal lobe (principal); G93.6 Cerebral edema; C79.32 Secondary malignant neoplasm of cerebral meninges; R51 Headache; C71.6 Malignant neoplasm of cerebellum; F41.8 Other specified anxiety disorders; Z51.5 Encounter for palliative care; R26.0 Ataxic gait; R45.86 Emotional lability; Z79.52 Long term (current) use of systemic steroids
CPT/HCPCS: 99223; 99233; NC; U0003; J3490; J8540